=== PATIENT | male | born 1945 | race Caucasian/White ===

== ENCOUNTER → 2017-01-03 | Outpatient (CLI) | payer BC ==
[~2017-01-03] MED LIST: ACET-1256 PO; GABEPENTIN; NAPR1TAB9 PO; REVIEWED; SIMV10TA2 PO; TRAM-10 PO; VALA500T60 PO; [UNRECOGNIZED DRUG - OTHER]; [UNRECOGNIZED DRUG - REMARK]
[2017-01-03 09:01] LABS: BASO % 0.6 %; BASO ABS # 0.03 K/uL (0-0.2); COMPLETE YES; EOS % 5.8 %; HEMATOCRIT 41.5 % (42-52); IG% 0.4 %; LYMPH % 39.4 %; LYMPH ABS # 2.11 K/uL (1.2-3.4); MEAN CORPUSCULAR HEMOGLOBIN 31.2 pg (25-34); MEAN CORPUSCULAR HGB CONC 33.5 g/dl (32-36); MONO % 8.8 %; PLATELET COUNT 246 K/uL (130-400); RED BLOOD COUNT 4.46 M/uL (4.7-6.1); WHITE BLOOD COUNT 5.35 K/uL (4.8-10.8)
[2017-01-03 09:39] LABS: ALT/SGPT 33 U/L (12-78); AST/SGOT 20 U/L (15-37); BLOOD UREA NITROGEN 18 mg/dl (7-18); CALCIUM 9.9 mg/dl (8.5-10.1); CARBON DIOXIDE 28 mmol/L (21-32); CHLORIDE 109 mmol/L (98-107); CHOLESTEROL 165 mg/dl (0-200); FERRITIN 114.2 ng/ml (8.0-388.0); GLUCOSE 95 mg/dl (70-99); HDL CHOLESTEROL 55 mg/dl; LDL CHOLESTEROL CALCULATED 91 mg/dl; POTASSIUM 4.2 mmol/L (3.5-5.1); PROSTATE SPECIFIC ANTIGEN < 0.010 ng/ml (0.000-4.000); SODIUM 140 mmol/L (136-145); TRIGLYCERIDES 94 mg/dl (0-150); VERY LOW DENSITY LIPOPROT CALC 19 mg/dl
[2017-01-03 09:44] LABS: ALKALINE PHOSPHATASE 74 U/L (45-117)
--- NOTE | 2017-01-07 09:28 | CODING QUERY MEDICAL NECESSITY ---
SUPPORTING DIAGNOSIS NEEDED Dr. Wilsno, A supporting diagnosis is required for the test/procedure performed on this patient in order for us to be reimbursed by the patient's insurance. Please provide a supporting diagnosis for the following test/procedure listed below next to the test name along with your signature. *If there is no additional diagnosis for this patient that would support the following test/procedure please document that below next to the test/procedure. Test(s)/Procedure(s) that require a supporting diagnosis: * ([id number]) B12 VITAMIN LEVEL DIAGNOSIS: * [id number] PSA DIAGNOSIS: DATE OF SERVICE: 01/03/17 Provider Signature: Date: Thank you Anjum Jain Health Information Management Once completed, please kindly fax back to [phone] For questions please call [phone]
== END | disposition home or self-care (01) ==
LOC: C.LAB 08:08
PROVIDERS: ATTEND Internal Medicine Geriatric Medicine
DX: Z11.59 Encounter for screening for other viral diseases (principal); R73.9 Hyperglycemia, unspecified; I10 Essential (primary) hypertension; E78.5 Hyperlipidemia, unspecified; E03.9 Hypothyroidism, unspecified; E83.52 Hypercalcemia

== ENCOUNTER → 2017-07-04 | Outpatient (CLI) | payer BC ==
[2017-07-04 09:36] LABS: BASO % 0.4 %; BASO ABS # 0.02 K/uL (0-0.2); EOS % 5.4 %; EOS ABS # 0.28 K/uL (0-0.5); HEMATOCRIT 43.4 % (42-52); HEMOGLOBIN 14.7 g/dL (14.0-18.0); IG# 0.01 K/uL (0.00-0.02); LYMPH % 42.9 %; LYMPH ABS # 2.24 K/uL (1.2-3.4); MEAN CELL VOLUME 93.5 fL (80-100); MEAN CORPUSCULAR HEMOGLOBIN 31.7 pg (25-34); MEAN CORPUSCULAR HGB CONC 33.9 g/dl (32-36); MEAN PLATELET VOLUME 10.1 fL (7.4-10.4); MONO % 11.3 %; MONO ABS # 0.59 K/uL (0.11-0.59); NEUT % 39.8 %; NEUT ABS # 2.08 K/uL (1.4-6.5); PLATELET COUNT 219 K/uL (130-400); RED CELL DISTRIBUTION WIDTH CV 14.6 % (11.5-14.5); RED CELL DISTRIBUTION WIDTH SD 49.4 fL (36.4-46.3); WHITE BLOOD COUNT 5.22 K/uL (4.8-10.8)
== END | disposition home or self-care (01) ==
LOC: C.LAB 08:42
PROVIDERS: ATTEND Internal Medicine Geriatric Medicine
DX: I10 Essential (primary) hypertension (principal); D64.9 Anemia, unspecified; E03.9 Hypothyroidism, unspecified

== ENCOUNTER → 2017-09-02 | Outpatient (CLI) | payer BC | END | disposition home or self-care (01) | LOC: C.LABSPEC 11:27 | PROVIDERS: ATTEND Nurse Practitioner Adult Health | DX: L72.9 Follicular cyst of the skin and subcutaneous tissue, unspecified (principal) ==

== ENCOUNTER 2022-03-12 06:07 | Inpatient (IN) ==
--- NOTE | 2022-02-19 15:40 | PAT Medication Instructions ---
Medication Instructions Date of Service February 19, 2022 Home Medications acetaminophen 500 mg tablet (Tylenol Extra Strength) 3,000 mg PO DAILY PRN Pain acyclovir 5 % topical ointment 1 appln topical ONCE PRN Rash ascorbic acid (vitamin C) 1,000 mg tablet 2.5 gm PO TID biotin 10,000 mcg capsule 10,000 mcg PO PM glucosamine 750 eh-wnwfnfcdw-qny no.7 644 mg-vit V-juadrg-nvdlc tablet (Glucosamine-Chondr Cmplx (boswellia)) 1 tab PO TID multivitamin (Daily Multi-Vitamin tablet) 1 tab PO QAM omega-3 acid ethyl esters 1 gram capsule 1 cap PO TID cetirizine 10 mg tablet 10 mg PO QAM cholecalciferol (vitamin D3) 25 mcg (1,000 unit) tablet (Vitamin D3) 25 mcg PO PM cyclobenzaprine 5 mg tablet 5 mg PO QDD muscle spasm gabapentin 300 mg capsule 300 mg PO HS lisinopril 2.5 mg tablet 2.5 mg PO HS simvastatin 10 mg tablet 10 mg PO HS valacyclovir 500 mg tablet 500 mg PO HS STOP taking 2 weeks before surgery (or as soon as possible if surgery is within 2 weeks) glucosamine 750 vr-bbchqhhpy-sau no.7 644 mg-vit E-wxgain-icfio tablet (Glucosamine-Chondr Cmplx (boswellia)) 1 tab PO TID omega-3 acid ethyl esters 1 gram capsule 1 cap PO TID STOP taking 24 hours before surgery acyclovir 5 % topical ointment 1 appln topical ONCE PRN Rash DO NOT take the morning of surgery ascorbic acid (vitamin C) 1,000 mg tablet 2.5 gm PO TID multivitamin (Daily Multi-Vitamin tablet) 1 tab PO QAM cetirizine 10 mg tablet 10 mg PO QAM Take morning of surgery With a small sip of water, OTHERWISE NOTHING TO EAT OR DRINK AFTER MIDNIGHT: acetaminophen 500 mg tablet (Tylenol Extra Strength) 3,000 mg PO DAILY PRN Pain (if needed) Take evening before surgery acetaminophen 500 mg tablet (Tylenol Extra Strength) 3,000 mg PO DAILY PRN Pain (if needed) ascorbic acid (vitamin C) 1,000 mg tablet 2.5 gm PO TID biotin 10,000 mcg capsule 10,000 mcg PO PM cholecalciferol (vitamin D3) 25 mcg (1,000 unit) tablet (Vitamin D3) 25 mcg PO PM cyclobenzaprine 5 mg tablet 5 mg PO QDD muscle spasm gabapentin 300 mg capsule 300 mg PO HS lisinopril 2.5 mg tablet 2.5 mg PO HS simvastatin 10 mg tablet 10 mg PO HS valacyclovir 500 mg tablet 500 mg PO HS Other Notes If you have any questions please call us at [phone] or [phone] or [phone] or [phone]
--- NOTE | 2022-02-26 11:40 | Anesthesiology Consultation ---
Date of Service February 26, 2022 Assessment & Plan (1) Encounter for pre-operative examination: Chart Review Chart Review: Acceptable Risk for Surgery and Patient seen in Pre Admission Testing Teaching & Discussion Pre-Anesthesia Teaching/Discussion Notes: Instructed NPO after midnight before surgery, except medications with 15 cc of water. Medication instructions provided according to the PAT guidelines. History Surgery Operation Date: 03/12/22 07:45 Proposed Procedures p C6-C7 Anterior Cervical Discectomy and Fusion, C5 Corpectomy, Spinal Cord Monitoring - Casey Foster DO Pt states weighs 215 lb at home, has equipment clipped into belt so elected to be weighed with work equipment/heavy boots on today at 106.7 kg. Height/Weight Height: 5 ft 7 in Weight: 99.79 kg Allergies Allergy/AdvReac Type Severity Reaction Status Date / Time acetaminophen [From Percocet] Allergy Intermediate Rash Verified 02/24/22 10:27 codeine Allergy Intermediate Rash Verified 02/24/22 10:27 oxycodone [From Percocet] Allergy Intermediate Rash Verified 02/24/22 10:27 Medications Home Medications Medication Instructions Recorded Confirmed Last Taken acetaminophen 500 mg tablet 3,000 mg PO DAILY PRN Pain 03/03/19 02/19/22 Unknown (Tylenol Extra Strength) acyclovir 5 % topical ointment 1 appln topical ONCE PRN Rash 03/03/19 02/19/22 Unknown ascorbic acid (vitamin C) 1,000 mg 2.5 gm PO TID 03/03/19 02/19/22 Unknown tablet biotin 10,000 mcg capsule 10,000 mcg PO PM 03/03/19 02/19/22 Unknown glucosamine 750 sy-cdcvrgqdi-mog 1 tab PO TID 03/03/19 02/19/22 Unknown no.7 644 mg-vit E-ubzjlh-ljreg tablet (Glucosamine-Chondr Cmplx (boswellia)) multivitamin (Daily Multi-Vitamin 1 tab PO QAM 03/03/19 02/19/22 Unknown tablet) omega-3 acid ethyl esters 1 gram 1 cap PO TID 03/03/19 02/19/22 Unknown capsule cetirizine 10 mg tablet 10 mg PO QAM 03/10/19 02/19/22 Unknown cholecalciferol (vitamin D3) 25 25 mcg PO PM 02/19/22 02/19/22 Unknown mcg (1,000 unit) tablet (Vitamin D3) cyclobenzaprine 5 mg tablet 5 mg PO QDD muscle spasm 02/19/22 02/19/22 Unknown gabapentin 300 mg capsule 300 mg PO HS 02/19/22 02/19/22 Unknown lisinopril 2.5 mg tablet 2.5 mg PO HS 02/19/22 02/19/22 Unknown simvastatin 10 mg tablet 10 mg PO HS 02/19/22 02/19/22 Unknown valacyclovir 500 mg tablet 500 mg PO HS 02/19/22 02/19/22 Unknown Past Medical History Medical History (Updated 02/27/22 @ 08:23 by Anamika Burton PA-C) Aortic regurgitation Mild per 2018 stress echo Aortic root dilatation Mildly dilated aortic root and ascending aorta dilation per 2018 stress echo Dyslipidemia Genital herpes simplex H/O prostate cancer s/p prostatectomy Hearing loss HTN (hypertension) controlled, stable per pt Lumbar spinal stenosis Lung nodules Under surveillance Patient denies h/o stroke, seizures, heart attack, heart failure, DM, blood clots or blood transfusions. Exercise / Class Metabolic Activity II 4-5 Yardwork/Stairs/Walk up hill (denies CP or SOB with 1 FOS) Past Family History Family History Father Colorectal cancer Prostate cancer Mother Pancreatitis Denies family history of Ovarian cancer Diabetes Myocardial infarction Breast cancer Lung cancer Stroke Past Surgical History Surgical History History of appendectomy History of colonoscopy History of prostate surgery Prostatectomy (Dr. Harris) History of tooth extraction Hx of umbilical hernia repair Past Anesthesia History No Hx of Anesthesia Complications and No Family Hx of Anesthesia Complications History of PONV No Hx of PONV and No Hx of Motion Sickness Social History Smoking Status: Former smoker Do You Dip or Chew Tobacco: No Smoking End Date: 1988 Hx Alcohol Use: No Hx Substance Use: No substance use type: does not use Review of Systems Snoring, denies witnessed apneas. Chronic nonproductive cough, denies change or worsening. Patient denies chest pain, shortness of breath, dyspnea on exertion, reflux, fever, chills, wheezing, or palpitations. Physical Exam Vital Signs Vitals BP 112/75 P 84 TEMP 98.7 SP02 94% on RA RESP 17 Physical Limited cervical extension range of motion without pain TMD 3.5 finger breadths Mallampati Score 3 Dentition: edentulous, full upper and lower dentures Lungs: normal respiratory effort. Clear throughout to auscultation, no adventitious breath sounds Cardiac: regular rate and rhythm, no murmurs noted Carotid arteries: negative bruit bilat Lab Results Anesthesia Preop Results Results Anesthesia Widget: WBC 5.66 K/ul (4.8-10.8) 02/26/22 Hgb 14.2 g/dl (14.0-18.0) 02/26/22 Hct 41.2 % (40.1-51.0) 02/26/22 Plt 271 K/uL (130-400) 02/26/22 Na 137 mmol/L (136-145) 02/26/22 K 4.0 mmol/L (3.5-5.1) 02/26/22 Cl 105 mmol/L (98-107) 02/26/22 CO2 28 mmol/L (21-32) 02/26/22 BUN 15 mg/dl (6-23) 02/26/22 Creat 1.03 mg/dl (0.6-1.4) 02/26/22 Glucose Level 98 mg/dl (70-99(Fasting)) 02/26/22 PT 10.1 Seconds (9.0-12.0) 02/26/22 PTT 27.9 Seconds (21.0-31.0) 02/26/22 INR 0.9 (0.9-1.1) 02/26/22 Urine Color Yellow 02/26/22 Urine Appearance Clear (Clear) 02/26/22 Urine pH 7.0 (4.5-7.5) 02/26/22 Urine Specific Dickinson 1.007 (1.000-1.030) 02/26/22 Urine Protein Negative (Negative) 02/26/22 Urine Glucose (UA) Negative (Negative) 02/26/22 Urine Ketones Negative (Negative) 02/26/22 Urine Blood Negative (Negative) 02/26/22 Urine Nitrite Negative (Negative) 02/26/22 Urine Bilirubin Negative (Negative) 02/26/22 Urine Urobilinogen Negative (Negative) 02/26/22 Urine Leukocyte Esterase Negative (Negative) 02/26/22 Blood Type O Positive 02/26/22 Antibody Screen NEGATIVE 02/26/22 Testing Electrocardiogram Date: 02/26/22 NSR with sinus arrhythmia, rate 70 bpm Left axis deviation RBBB Stress Test Date: 03/01/18 Exercise METS 5 MPHR 90% EF 60-65% No regional wall motion abnormalities No LVH Mild aortic regurgitation Mildly dilated aortic root and ascending aorta Other Testing Chest CT 12/03/21 1. No acute abnormality, in particular no parenchymal or endobronchial lesion to explain hemoptysis. 2. Multiple tiny pulmonary nodules are seen measuring no more than 3 mm. According to Fleischner criteria, no follow-up is required in low risk patients, in high-risk patients, a 12 month follow-up CT can be optionally performed. COVID-19 Risk Screen Screening Information COVID-19 Screen Date: 02/26/22 Exposure 21 Days Family/Household +COVID Last 21 Days: No Exposure 10 Days Any COVID Exposure Last 10 Days: No Symptoms Last 10 Days Experienced COVID Sx Last 10 Days: No + COVID 0-90 Days COVID + in Last 0-90 Days: No
[~2022-03-12 06:07] MED LIST changes: -ACET-1256 PO; +CeleBREX 200 MG CAP PO SCH; +GABAPENTIN 300 MG CAP PO SCH; -GABEPENTIN; +LR 15ML/HR IV SCH; -NAPR1TAB9 PO; -REVIEWED; -SIMV10TA2 PO; -TRAM-10 PO; -VALA500T60 PO; -[UNRECOGNIZED DRUG - OTHER]; -[UNRECOGNIZED DRUG - REMARK]; +ceFAZolin 2000MG 2,000 MG/15 ML SYR IV SCH
[2022-03-12] MEDS ORDERED: PROPOFOL IV EMULSION 10 MG/ML 100 ML VIAL IV ONE (06:59)
[2022-03-12] MEDS ORDERED: ePHEDrine sulfate 50 MG/ML SYR ONE (07:19)
[2022-03-12] MEDS ORDERED: ROCURONIUM BROMIDE 10 MG/ML 5 ML VIAL IV ONE (07:19)
[2022-03-12] MEDS ORDERED: PHENYLEPHRINE 100MCG/ML 5ML SYR ONE (07:19)
[2022-03-12] MEDS ORDERED: LIDOCAINE 2% MPF LOCAL 5 ML VIAL INFIL ONE (07:19)
[2022-03-12] MEDS ORDERED: fentaNYL citrate 100 MCG/2 ML VIAL ONE (07:19)
[2022-03-12] MEDS ORDERED: MIDAZOLAM HCL 1 MG/ML 2ML VIAL ONE (07:19)
[2022-03-12] MEDS ORDERED: LARYING-O-JET KIT (LTA) ONE (07:19)
[2022-03-12] MEDS ORDERED: PROPOFOL IV EMULSION 10 MG/ML 20 ML VIAL IV ONE (07:19)
[2022-03-12] MEDS ORDERED: DEXAMETHASONE SOD INJ 4 MG/ML VIAL ONE (07:19)
[2022-03-12] MEDS ORDERED: ONDANSETRON INJ 2 MG/ML 2 ML VIAL ONE (07:19)
[2022-03-12] MEDS ORDERED: GLYCOPYRROLATE 0.2 MG/ML VIAL ONE (07:19)
[2022-03-12] MEDS ORDERED: NEOSTIGMINE METHYLSULFATE 1 MG/ML 10ML VIAL ONE (07:19)
[2022-03-12] MEDS ORDERED: SUCCINYLCHOLINE CHLORIDE 20 MG/ML 10 ML VIAL IV ONE (07:19)
--- NOTE | 2022-03-12 07:33 | History & Physical Bridge Note ---
Date of Service March 12, 2022 History & Physical Bridge Note I have examined the patient, reviewed the History & Physical and in the interval since the performance of the History & Physical I have noted the following changes of clinical significance: no changes noted
--- NOTE | 2022-03-12 07:34 | History & Physical Report ---
Date of Service March 12, 2022 Assessment & Plan (1) Cervical stenosis of spinal canal: Plan: Anterior cervical discectomy and fusion C6-C7 with C5 corpectomy History of Present Illness Chief Complaint: Neck and arm pain Primary Care Provider: Sohan Woo DO This is a 76-year-old male who presents with chronic persistent neck and arm symptoms with failed course of nonoperative care is here for surgical invention. Allergies Allergy/AdvReac Type Severity Reaction Status Date / Time codeine Allergy Intermediate Rash Verified 03/12/22 06:44 oxycodone [From Percocet] Allergy Intermediate Rash Verified 03/12/22 06:44 Home Medications Medication Instructions Recorded Confirmed Type acetaminophen 500 mg tablet 3,000 mg PO DAILY PRN Pain 03/03/19 03/12/22 History (Tylenol Extra Strength) acyclovir 5 % topical ointment 1 appln topical ONCE PRN Rash 03/03/19 03/12/22 History ascorbic acid (vitamin C) 1,000 mg 2.5 gm PO TID 03/03/19 03/12/22 History tablet biotin 10,000 mcg capsule 10,000 mcg PO PM 03/03/19 03/12/22 History glucosamine 750 ga-ukiaweotx-mkw 1 tab PO TID 03/03/19 03/12/22 History no.7 644 mg-vit O-zppnem-pfdbv tablet (Glucosamine-Chondr Cmplx (boswellia)) multivitamin (Daily Multi-Vitamin 1 tab PO QAM 03/03/19 03/12/22 History tablet) omega-3 acid ethyl esters 1 gram 1 cap PO TID 03/03/19 03/12/22 History capsule cetirizine 10 mg tablet (Zyrtec) 10 mg PO QAM 03/10/19 03/12/22 History cholecalciferol (vitamin D3) 25 25 mcg PO PM 02/19/22 03/12/22 History mcg (1,000 unit) tablet (Vitamin D3) cyclobenzaprine 5 mg tablet 5 mg PO QDD muscle spasm 02/19/22 03/12/22 History gabapentin 300 mg capsule 300 mg PO HS 02/19/22 03/12/22 History lisinopril 2.5 mg tablet (Zestril) 2.5 mg PO HS 02/19/22 03/12/22 History simvastatin 10 mg tablet (Zocor) 10 mg PO HS 02/19/22 03/12/22 History valacyclovir 500 mg tablet 500 mg PO HS 02/19/22 03/12/22 History (Valtrex) Past Med/Surg History Medical History Aortic regurgitation Aortic root dilatation Dyslipidemia Genital herpes simplex H/O prostate cancer Hearing loss HTN (hypertension) Lumbar spinal stenosis Lung nodules Surgical History History of appendectomy History of colonoscopy History of prostate surgery History of tooth extraction Hx of umbilical hernia repair Family History Father Colorectal cancer Prostate cancer Mother Pancreatitis Denies family history of Ovarian cancer Diabetes Myocardial infarction Breast cancer Lung cancer Stroke Social History Smoking Status: Former smoker Smoking End Date: 1988; Second Hand Exposure: No; Do You Dip or Chew Tobacco: No; Tobacco Cessation Education Requested by Patient: No Hx Alcohol Use: No Hx Substance Use: No Preferred Language: Hebrew Communication Ability: Effective Visual Impairment: Limited Hearing Ability: Hard of Hearing Hearing Therapy Director Required: No Beliefs That Will Affect Care: None marital status: Current Living Situation: Spouse current occupational status: employed How many Children do You have: 3 Other Information That Helps Us Care for You: No Feels Safe at Home: Yes Safety Concerns: Feels Safe At This Time Childhood Exposure to Second-Hand Smoke: No caffeine: Yes Dental Care, Regularly: No Physical Activity Frequency: Does not Exercise Seatbelt Use: always Sunscreen Use: No Assistive Devices: Denture - Upper, Denture - Lower and Glasses Physical Exam Physical Exam: Patient is alert and oriented Heart regular rhythm Lungs clear Results & Data Results & Data ([facility]) Vital Signs (Past 12 Hours) Vital Signs Temp Pulse Resp BP Pulse Ox O2 Del Method 03/12/22 06:54 36.4 C L 79 20 137/81 94 Room Air
[2022-03-12] MEDS ORDERED: ceFAZolin 330 MG/ML 1 GM VIAL ONE (08:13)
[2022-03-12] MEDS ORDERED: PROMETHAZINE HCL 12.5 MG in SODIUM CHLORIDE 0.9% 50 ML IV PRN ×2 (08:43→11:24)
[2022-03-12] MEDS ORDERED: ePHEDrine sulfate 50 MG/ML AMP IV PRN (08:43)
[2022-03-12] MEDS ORDERED: ATROPINE SULFATE 0.1 MG/ML 10ML SYR IV PRN (08:43)
[2022-03-12] MEDS ORDERED: DEXAMETHASONE SOD INJ 4 MG/ML VIAL IV PRN (08:43)
[2022-03-12] MEDS ORDERED: METOCLOPRAMIDE HCL INJ 5 MG/ML 2 ML VIAL IV PRN ×2 (08:43→11:24)
[2022-03-12] MEDS ORDERED: FLOSEAL HEMOSTATIC MATRIX 10ML TOP ONE (09:24)
--- NOTE | 2022-03-12 09:41 | Operative Report ---
Post Operative Report Pre & Post Diagnosis Operation Date: 03/12/22 07:45 Pre-Op Diagnosis: Cervical spinal stenosis with radiculopathy Post-Op Diagnosis: Same I identified the patient and participated in the time-out.: Yes Procedure Operation Date: 03/12/22 07:45 Actual Procedures #1 anterior cervical corpectomy with bilateral foraminotomies C5. #2 anterior cervical discectomy C6-C7 with bilateral foraminotomies. #3 anterior cervical arthrodesis C4-C6 and C6-C7. #4 placement of peek 23 mm cage C4-C6 and 7 mm cage at C6-C7. #5 placement locally harvested morselized autograft combined with I factor and interbody cages. #6 placement of 5 complete and screws from C4-C7. Surgeon Casey Foster, DO Mission Support Specialist Yuli May Estimated Blood Loss 10 Findings See Below The patient is 5 foot 7 weighing over 110 kg with a BMI in excess of 35. The patient body habitus did contribute to significant technical difficulty required deeper retractors longer instruments in order to perform his procedure. This at least 50% increased operative time. Specimens None Indications This is a 76-year-old male who presents with above-mentioned diagnosis after failed course of nonoperative care is here for the above-mentioned procedure. Description of Procedure Patient was met with identified informed consent obtained. Patient was then taken to the operative suite underwent ablation placed in supine position Andreas table with head Sánchez rand. All bony prominences well-padded eyes inspected to ensure no external pressure placed upon the. This point anterior cervical spine was prepped and draped in a sterile fashion. Incision was then placed along the right anterior aspect of the cervical spine overlying the C C6 vertebral body. Blunt dissection was then carried out down to and exposing anterior spine from C4-C5 7. Several 10 retractors placed. Then performed a complete discectomy of C4-C5 out to the uncovertebral edge bilaterally followed by C6-C7. Stapleton distracting pins were then placed in C4 and C6 to distract across the C5 vertebral body. A complete corpectomy was then performed including removal of all posterior annular fibers longitudinal ligament bilateral foraminotomies performed. Endplates burred to subcortical bleeding bone and a 23 mm peek cage filled with locally harvested morselized autograft and I factor tapped in position. Distracting apparatus was removed and we proceeded to C6-C7. Again complete discectomy performed out to the uncovertebral joints bilaterally. Stapleton distracting pins again utilized. Removed all posterior annular fibers longitudinal ligament bilateral foraminotomies performed. A 7 mm peek cage filled with locally harvested morselized autograft and I factor tapped the position. Distracting apparatus was removed and all anterior osteophytes produce with cortical surface. 5 compl ete screws were then applied with the assistance of fluoroscopy. Incision was then copiously irrigated explored to ensure no damage to surrounding structures or remaining bleeding. 10 round JASON drain inserted. The incision was then closed with subcutaneous Vicryl and 4 Monocryl for fascial closure. Steri-Strip sterile dressings placed. Patient waken taken back in stable condition. Please note spinal cord monitoring was utilized at the procedure and Yuli May was present out the surgery involved in patient positioning complex portions of the surgery. I attest to the content of the Intraoperative Record and any orders documented therein. Any exceptions are noted below.
[2022-03-12] MEDS: fentaNYL citrate 100 MCG/2 ML VIAL IV PRN ×3 (10:22→10:35)
[2022-03-12] MEDS: HYDROmorphone INJ 2 MG/ML SYR/VIAL IV PRN ×4 (10:45→11:55)
--- NOTE | 2022-03-12 10:45 | Fluoroscopy Report ---
FL cervical 2-3V CLINICAL HISTORY: ACDF C6-7 C5 CORPECTOMY COMPARISON STUDY: Cervical spine radiograph May 17, 2021. MRI of the cervical spine May. FLUOROSCOPY TIME: 11 seconds. FLUOROSCOPIC IMAGES: 2 FINDINGS: Fluoroscopy was provided during C5 corpectomy and C4-C7 anterior discectomy and fusion. Rocky gical drain is in place. Endotracheal tube is partially imaged. IMPRESSION: Fluoroscopy provided during C5 corpectomy and C4-C7 anterior discectomy and fusion. ACT 112: Negative or not required by law. Electronically signed by: Anthony Tom M.D. 03/12/2022 10:44 AM
[2022-03-12] MEDS ORDERED: LORazepam 0.5 MG in SYRINGE 0 ML IV PRN (11:24)
[2022-03-12] MEDS ORDERED: ACETAMINOPHEN 1,000 MG/100 ML VIAL IV PRN (11:24)
[2022-03-12] MEDS ORDERED: diphenhydrAMINE Capsule 25 MG CAP PO PRN (11:24)
[2022-03-12] MEDS ORDERED: NALOXONE HCL 0.4 MG/1 ML VIAL/CARP IV PRN (11:24)
[2022-03-12] MEDS ORDERED: MAGNESIUM HYDROXIDE SUSP 30 ML UDC PO PRN (11:24)
[2022-03-12] MEDS ORDERED: ONDANSETRON 4 MG OD TAB PO PRN (11:24)
[2022-03-12] MEDS ORDERED: RACEPINEPHRINE 2.25% NEBU SOLN 0.5 ML VIAL INH PRN (11:24)
[2022-03-12] MEDS ORDERED: HYDROmorphone INJ 1 MG/ML SYRINGE IV PRN (11:24)
[2022-03-12] MEDS ORDERED: SOD PHOSPHATE/SOD BIPHOSPHATE ENEMA 132 ML BTL PR PRN (11:24)
[2022-03-12] MEDS ORDERED: hydrOXYzine HCl 25 MG TAB PO PRN (11:24)
[2022-03-12] MEDS ORDERED: LORazepam 0.5 MG TAB PO PRN (11:24)
[2022-03-12] MEDS ORDERED: HYDROCODONE/ACETAMOPHEN 5/325MG TAB PO PRN (11:24)
[2022-03-12] MEDS ORDERED: dexAMETHasone 8 MG in SYRINGE 0 ML IV PRN (11:24)
[2022-03-12] MEDS ORDERED: HYDROmorphone INJ 0.5 MG/0.5 ML SYR IV PRN (11:24)
[2022-03-12] MEDS ORDERED: ACETAMINOPHEN 500 MG TAB PO PRN (11:24)
[2022-03-12] MEDS ORDERED: ONDANSETRON INJ 2 MG/ML 2 ML VIAL IV PRN (11:24)
[2022-03-12] MEDS ORDERED: FAMOTIDINE 20 MG TAB PO PRN (11:24)
[2022-03-12] MEDS ORDERED: bisacodyL 10 MG SUPP PR PRN (11:24)
[2022-03-12] MEDS ORDERED: ALUMINUM/MAGNESIUM SUSP 30 ML UDC PO PRN (11:24)
--- NOTE | 2022-03-12 12:07 | Anesthesiology Progress Note ---
Date of Service March 12, 2022 Anesthesia Post Procedure Vital Signs Vital Signs: Temp Pulse Pulse Resp BP Pulse Ox O2 Del Method 03/12/22 12:00 95 H 15 153/71 H 97 Nasal Cannula 03/12/22 11:45 91 H 12 125/71 98 Nasal Cannula 03/12/22 11:30 87 16 126/72 98 Nasal Cannula 03/12/22 10:30 66 17 115/72 100 Nasal Cannula 03/12/22 10:20 67 19 115/76 100 Nasal Cannula 03/12/22 10:10 76 19 127/74 100 Nasal Cannula 03/12/22 10:00 62 15 110/75 99 Oxymask 03/12/22 11:15 57 L 15 100/67 98 Nasal Cannula 03/12/22 11:10 36 C L 52 L 15 118/80 96 Nasal Cannula 03/12/22 11:00 52 L 17 122/83 97 Nasal Cannula 03/12/22 10:50 58 L 20 110/71 98 Nasal Cannula 03/12/22 10:40 49 L 20 115/72 98 Nasal Cannula 03/12/22 09:50 86 12 117/73 98 Oxymask 03/12/22 09:44 36.1 C L 92 H 19 128/80 99 Oxymask 03/12/22 06:54 36.4 C L 79 20 137/81 94 Room Air O2 Flow Rate 03/12/22 12:00 2 03/12/22 11:45 2 03/12/22 11:30 2 03/12/22 10:30 2 03/12/22 10:20 2 03/12/22 10:10 2 03/12/22 10:00 4 03/12/22 11:15 2 03/12/22 11:10 2 03/12/22 11:00 2 03/12/22 10:50 2 03/12/22 10:40 2 03/12/22 09:50 7 03/12/22 09:44 7 03/12/22 06:54 Pain Intensity Posterior Neck: Pain Intensity: 4 Transfer of Care Handoff Completed per policy Notes Mental Status: alert / awake / arousable and participated in evaluation Patient Amnestic to Procedure: Yes Nausea / Vomiting: adequately controlled Pain: adequately controlled Airway Patency, RR, SpO2: stable & adequate BP & HR: stable & adequate Hydration State: stable & adequate Anesthetic Complications: no major complications apparent
[2022-03-12] MEDS: SODIUM CHLORIDE 0.9% 1000ML 1,000 ML IV SCH ×2 (13:01→19:47)
[2022-03-12] MEDS ORDERED: COUGH DROP (SUGAR FREE) LOZ 24 LOZ/1 BOX BUCCAL ONE (13:06)
--- NOTE | 2022-03-12 13:12 | Hospitalist Consultation ---
Date of Consultation March 12, 2022 Assessment & Plan (1) S/P cervical spinal fusion: -Patient is currently afebrile, hemodynamically stable, and stable on 3L NC -No reported intra-op complications, EBL reported as 10cc -Patient is currently doing well and eating lunch -Pain control, abx, IV fluids and DVT prophylaxis per the primary team -Wean O2 as able, if unable to successfully wean would obtain a chest xray -Monitor for volume overload while on IV fluids -Continue famotidine for ulcer prophylaxis -Ordered am CBC and BMP, monitor Hgb and renal function (2) HTN (hypertension): -Last dose of Lisinopril was last night, can restart tomorrow if hemodynamically stable and kidney function is stable (3) Dyslipidemia: -Continue simvastatin (4) Genital herpes: -Continue daily Valacyclovir for suppression Plan The patient was discussed with Dr. Noel at the time of the consult Supervising Physician Co-Signing Physician Notes I personally saw and examined the patient. I verified all bettencourt points and agree with Johnnie Amin PA-C with the following exceptions and/or additions: 76 year old male POD#0 cervical spinal fusion. Doing well post operatively, left arm symptoms have improved. Neck pain under control with current pain regimen. O/E HS1+2, no murmurs, Chest CTAB, Abdo SNT A/P HTN - delayed lisinopril dose by another day given low normal blood pressures. Otherwise plan as above. Thank you for the consult. The medical team with review the patient with post operative labs tomorrow. History of Present Illness Reason for Consultation: Post-op medical management Requesting Physician: Casey Foster DO Attending Physician: Dr. Lane Noel History of Present Illness Ulysses is a 76 year old male with a PMH significant for cervical spinal stenosis, HTN, dyslipidemia, obesity, hypercalcemia, genital herpes simplex and aortic regurgitation who presented to the [facility] for Anterior cervical discectomy and fusion C6-C7 with C5 corpectomy with Dr. Foster today. Per the post-op note, the were no reported intraoperative complications, EBL was listed as 10 mL. At the time of the exam the patient was sitting comfortably in bed eating lunch. He states he is doing well post-procedure, he currently has mild cervical neck pain radiating into the left shoulder. He is currently saturating at 100% on 3L NC, he denies using O2 at home and does not use a CPAP machine. He denies current fevers, chills, chest pain, SOB, ABD pain, Nausea, vomiting, di arrhea, dysuria, hematuria, and recent falls. He used to be a heavy smoker but quit back in 1988. He is currently on daily Valacyclovir for suppression on his genital herpes and it has been working well. Allergies Allergy/AdvReac Type Severity Reaction Status Date / Time codeine Allergy Intermediate Rash Verified 03/12/22 06:44 oxycodone [From Percocet] Allergy Intermediate Rash Verified 03/12/22 06:44 Home Medications Medication Instructions Recorded Confirmed Type acetaminophen 500 mg tablet 3,000 mg PO DAILY PRN Pain 03/03/19 03/12/22 History (Tylenol Extra Strength) acyclovir 5 % topical ointment 1 appln topical ONCE PRN Rash 03/03/19 03/12/22 History ascorbic acid (vitamin C) 1,000 mg 2.5 gm PO TID 03/03/19 03/12/22 History tablet biotin 10,000 mcg capsule 10,000 mcg PO PM 03/03/19 03/12/22 History glucosamine 750 os-ieoysdrhk-mze 1 tab PO TID 03/03/19 03/12/22 History no.7 644 mg-vit B-kmpkfs-mucxd tablet (Glucosamine-Chondr Cmplx (boswellia)) multivitamin (Daily Multi-Vitamin 1 tab PO QAM 03/03/19 03/12/22 History tablet) omega-3 acid ethyl esters 1 gram 1 cap PO TID 03/03/19 03/12/22 History capsule cetirizine 10 mg tablet (Zyrtec) 10 mg PO QAM 03/10/19 03/12/22 History cholecalciferol (vitamin D3) 25 25 mcg PO PM 02/19/22 03/12/22 History mcg (1,000 unit) tablet (Vitamin D3) cyclobenzaprine 5 mg tablet 5 mg PO QDD muscle spasm 02/19/22 03/12/22 History gabapentin 300 mg capsule 300 mg PO HS 02/19/22 03/12/22 History lisinopril 2.5 mg tablet (Zestril) 2.5 mg PO HS 02/19/22 03/12/22 History simvastatin 10 mg tablet (Zocor) 10 mg PO HS 02/19/22 03/12/22 History valacyclovir 500 mg tablet 500 mg PO HS 02/19/22 03/12/22 History (Valtrex) hydrocodone 5 mg-acetaminophen 325 1 tab PO Q6H PRN pain #30 tabs 03/12/22 Rx mg tablet Patient History Medical History Aortic regurgitation Aortic root dilatation Dyslipidemia Genital herpes simplex H/O prostate cancer Hearing loss HTN (hypertension) Lumbar spinal stenosis Lung nodules Surgical History History of appendectomy History of colonoscopy History of prostate surgery History of tooth extraction Hx of umbilical hernia repair Family History Father Colorectal cancer Prostate cancer Mother Pancreatitis Denies family history of Ovarian cancer Diabetes Myocardial infarction Breast cancer Lung cancer Stroke Social History Smoking Status: Former smoker Smoking End Date: 1988; Second Hand Exposure: No; Do You Dip or Chew Tobacco: No; Tobacco Cessation Education Requested by Patient: No Hx Alcohol Use: No Hx Substance Use: No Preferred Language: Japanese Communication Ability: Effective Visual Impairment: Limited Hearing Ability: Hard of Hearing Postdoctoral Scholar Required: No Beliefs That Will Affect Care: None marital status: Current Living Situation: Spouse current occupational status: employed How many Children do You have: 3 Other Information That Helps Us Care for You: No Feels Safe at Home: Yes Safety Concerns: Feels Safe At This Time Childhood Exposure to Second-Hand Smoke: No caffeine: Yes Dental Care, Regularly: No Physical Activity Frequency: Does not Exercise Seatbelt Use: always Sunscreen Use: No Assistive Devices: None Review of Systems Review of Systems: Denies current fever, chills, headache, changes in vision, hearing, taste, and smell, chest pain, SOB, cough, abdominal pain, nausea, vomiting, diarrhea, hematemesis, melena, dysuria, hematuria, and recent falls. All systems have been reviewed and are otherwise negative. Physical Exam Physical Exam: Physical Exam: General: In no acute distress, stated age, well-nourished HEENT: Patient currently with C-collar in place, drain from the surgical site currently contains a small amount of blood, Normocephalic, atraumatic, no scleral icterus, pupils around round, symmetrical, and reactive to light, moist mucus membranes, trachea midline, no thyromegaly Chest/Pulm: Currently stable on 3L NC, No respiratory distress, symmetrical chest expansion, clear breath sounds throughout Cardiac: RRR, no murmurs noted Abdomen: Negative for ascites and bruising, normoactive bowel sounds, soft, non-tender to palpation throughout Musculoskeletal: Symmetrical and without signs of acute trauma, upper and lower extremities with full ROM, no atrophy, spasticity, or flaccidity Extremities: Radial, dorsalis pedis, and posterior tibial pulses are intact and symmetrical, no edema noted in the BL LE's Skin: Warm, dry, no rashes , lesions, or scars noted Neuro: Alert and oriented to person, place, month, year, and president, no focal defects, CN II-XII tested and intact, finger to nose test negative, no tremors noted Psych: No acute distress, calm and cooperative during the exam Results & Data Results & Data ([facility]) Vital Signs (Past 12 Hours) Vital Signs Temp Pulse Pulse Resp BP Pulse Ox Pulse Ox 03/12/22 13:00 36.9 C 92 H 16 121/72 97 03/12/22 12:30 36.6 C 97 H 16 128/75 98 03/12/22 12:37 98 03/12/22 12:35 100 H 17 99 03/12/22 12:00 95 H 15 153/71 H 97 03/12/22 11:45 91 H 12 125/71 98 03/12/22 11:30 87 16 126/72 98 03/12/22 10:30 66 17 115/72 100 03/12/22 10:20 67 19 115/76 100 03/12/22 10:10 76 19 127/74 100 03/12/22 10:00 62 15 110/75 99 03/12/22 11:15 57 L 15 100/67 98 03/12/22 11:10 36 C L 52 L 15 118/80 96 03/12/22 11:00 52 L 17 122/83 97 03/12/22 10:50 58 L 20 110/71 98 03/12/22 10:40 49 L 20 115/72 98 03/12/22 09:50 86 12 117/73 98 03/12/22 09:44 36.1 C L 92 H 19 128/80 99 03/12/22 06:54 36.4 C L 79 20 137/81 94 O2 Del Method O2 Del Method O2 Flow Rate O2 Flow Rate 03/12/22 13:00 Nasal Cannula 2 03/12/22 12:30 Nasal Cannula 2 03/12/22 12:37 Nasal Cannula 2 03/12/22 12:35 Nasal Cannula 2 03/12/22 12:00 Nasal Cannula 2 03/12/22 11:45 Nasal Cannula 2 03/12/22 11:30 Nasal Cannula 2 03/12/22 10:30 Nasal Cannula 2 03/12/22 10:20 Nasal Cannula 2 03/12/22 10:10 Nasal Cannula 2 03/12/22 10:00 Oxymask 4 03/12/22 11:15 Nasal Cannula 2 03/12/22 11:10 Nasal Cannula 2 03/12/22 11:00 Nasal Cannula 2 03/12/22 10:50 Nasal Cannula 2 03/12/22 10:40 Nasal Cannula 2 03/12/22 09:50 Oxymask 7 03/12/22 09:44 Oxymask 7 03/12/22 06:54 Room Air Diagnostic Findings Cervical Spine X-Ray 03/12/22 07:45 FL cervical 2-3V CLINICAL HISTORY: ACDF C6-7 C5 CORPECTOMY COMPARISON STUDY: Cervical spine radiograph May 17, 2021. MRI of the cervical spine June 04, 2021. FLUOROSCOPY TIME: 11 seconds. FLUOROSCOPIC IMAGES: 2 FINDINGS: Fluoroscopy was provided during C5 corpectomy and C4-C7 anterior discectomy and fusion. Surgical drain is in place. Endotracheal tube is partially imaged. IMPRESSION: Fluoroscopy provided during C5 corpectomy and C4-C7 anterior discectomy and fusion. ACT 112: Negative or not required by law. Electronically signed by: Anthony Tom M.D. 03/12/2022 10:44 AM ECG Additional Comments: No ECG available at the time of the consult PG Care Time/CCT Total # of Minutes Spent Total Time Spent with Patient: Total time spent is greater than 50% in coordination of care (as documented) at patient's floor/unit and/or counseling patient: Coding [place] [address] Inpt Consult Level 5 Patient Type Established Medical Decision Making Moderate Complexity Diagnoses S/P cervical spinal fusion Z98.1 HTN (hypertension) I10 Dyslipidemia E78.5 Genital herpes A60.00
[2022-03-12] MEDS: ceFAZolin 2000MG 2,000 MG/15 ML SYR IV SCH ×2 (15:50→23:48)
[2022-03-12] MEDS: traMADol HCL 50 MG TABLET PO PRN ×2 (16:21→22:41)
[2022-03-12] MEDS ORDERED: CYCLOBENZAPRINE HCL 5 MG TAB PO SCH (16:30)
[2022-03-12] MEDS ORDERED: SIMVASTATIN 10 MG TAB PO SCH (21:00)
[2022-03-12] MEDS ORDERED: valACYclovir HCL 500 MG TABLET PO SCH (21:00)
[2022-03-12] MEDS ORDERED: GABAPENTIN 300 MG CAP PO SCH (21:00)
[2022-03-12] MEDS ORDERED: CHOLECALCIFEROL 1,000 UNITS 25 MCG TAB PO SCH (21:00)
[2022-03-12] MEDS ORDERED: lisinopril 2.5 MG TAB PO SCH (21:00)
[2022-03-12] MEDS ORDERED: DOCUSATE SODIUM/SENNA 50/8.6MG TAB PO SCH (21:00)
[2022-03-13] MEDS: SODIUM CHLORIDE 0.9% 1000ML 1,000 ML IV SCH (01:50)
[2022-03-13] MEDS: POLYETHYLENE (MIRALAX) 17 GM PACK PO SCH ×2 (06:20→12:09)
[2022-03-13 06:37] LABS: Mean Corpuscular Hemoglobin 31.4 pg (25.0-34.0); Mean Corpuscular Hgb Conc 33.3 g/dL (32.0-36.0); Mean Corpuscular Volume 94.2 fL (80.0-100.0); Mean Platelet Volume 9.7 fL (9.4-12.4); Platelet Count 219 K/uL (130-400); RDW Coefficient of Variation 14.4 % (11.5-14.5); RDW Standard Deviation 49.7 fL (36.4-46.3); Red Blood Count 3.82 M/uL (4.63-6.08); White Blood Count 9.67 K/ul (4.8-10.8)
[2022-03-13 07:06] LABS: BUN Creatinine Ratio 13.3 (10-20); Calcium 9.2 mg/dl (8.5-10.1); Creatinine Clr Calc Pharmacy 82.3 ml/min; Est GFR (African American) 97.2 ml/min; Est GFR (Non-African American) 83.8 ml/min
--- NOTE | 2022-03-13 07:50 | Hospitalist Progress Note ---
Date of Service March 13, 2022 Assessment & Plan (1) S/P cervical spinal fusion: Plan: POD#1 s/p #1 anterior cervical corpectomy with bilateral foraminotomies C5. #2 anterior cervical discectomy C6-C7 with bilateral foraminotomies. #3 anterior cervical arthrodesis C4-C6 and C6-C7. #4 placement of peek 23 mm cage C4-C6 and 7 mm cage at C6-C7. #5 placement locally harvested morselized autograft combined with I factor and interbody cages. #6 placement of 5 complete and screws from C4-C7. on 03/[address] Foster. EBL 10cc Pain control/bowel regimen/PT/OT per primary service Dexamethasone by primary service 6mg IV daily c-collar H/h 14.2/41.2 --> post-operatively. Acute blood loss anemia but also dilutional as on continuous IVF post-operatively Likely plans for d/c after lunch, f/u Dr Foster after d/c (2) HTN (hypertension): Plan: BP stable 110/75 Kidney function stable, lisinopril ordered to resume tonight 2.5mg (3) Dyslipidemia: Plan: Continue simvastatin (4) Genital herpes: Plan: -Continue daily Valacyclovir for suppression Plan plans for d/c after lunch per primary service please call with any questions/concerns Admission and Anticipated Discharge Date Admission Date: March 12, 2022 Supervising Physician Co-Signing Physician Notes PA Supervision Note: I did not personally see or examine the patient today, but I verified all bettencourt points of MAYANK Sheets's assessment and plan with the following exceptions/additions: None Subjective Patient evaluated this morning, doing well. No sob/wheezing or difficulty breathing reported. Some soreness/hoarseness of voice, typically uses cough drops on the regular and has on bedside tray. Ate bread and eggs this morning , keeping mouth moist. No fever/chills, chest pain, shortness of breath, abdominal pain nausea or vomiting. Strength great b/l UE, decrease in discomfort to his RUE. Plans for d/c later today after lunch. Wanting to know about taking his Boswellia all natural antiinflammatory. Discussed would clear with Dr Foster prior to resuming this, will also message. Questions/concerns addressed at this time. Review of Systems Review of Systems: All systems reviewed & are unremarkable except as noted in HPI & below Physical Exam Physical Exam: General: WN/WD male sitting up in bed, NAD HEENT: head normocephalic, c-collar removed sitting up in bed, dressing c/d/i, minimal edema, NO STRIDOR Resp: CTAB, no w/c/r, no stridor, 97% on RA CV: RRR, no m/r/g, pulses palpable GI: +BS, nontender MSK/Neuro: moves all extremities, strength equal bilaterally, featherer strength equal, no focal deficit Psych: AOxx3, pleasant and cooperative Results & Data Results & Data ([facility]) Vital Signs (Past 12 Hours) Vital Signs Temp Pulse Pulse Resp BP Pulse Ox O2 Del Method 03/13/22 05:45 36.5 C 61 18 110/75 96 Room Air 03/13/22 03:45 36.6 C 70 16 107/63 95 Room Air 03/13/22 03:43 61 18 94 Room Air 03/13/22 01:45 36.9 C 69 16 110/64 92 Room Air 03/12/22 23:45 36.5 C 64 16 105/64 94 Room Air 03/12/22 21:45 36.9 C 74 16 106/66 92 Room Air 03/12/22 19:45 36.5 C 79 18 102/61 94 Room Air 03/12/22 22:42 62 16 95 Room Air Laboratory Results 03/13/22 03/13/22 Range/Units 05:55 05:55 WBC 9.67 (4.8-10.8) K/ul RBC 3.82 L (4.63-6.08) M/uL Hgb 12.0 L (14.0-18.0) g/dl Hct 36.0 L (40.1-51.0) % MCV 94.2 (80.0-100.0) fL MCH 31.4 (25.0-34.0) pg MCHC 33.3 (32.0-36.0) g/dL RDW Std Deviation 49.7 H (36.4-46.3) fL RDW Coeff of Alondra 14.4 (11.5-14.5) % Plt Count 219 (130-400) K/uL MPV 9.7 (9.4-12.4) fL Sodium 138 (136-145) mmol/L Potassium 4.0 (3.5-5.1) mmol/L Chloride 107 (98-107) mmol/L Carbon Dioxide 27 (21-32) mmol/L Anion Gap 4 (3-11) BUN 12 (6-23) mg/dl Creatinine 0.90 (0.6-1.4) mg/dl Est Cr Clr Drug Dosing 82.3 ml/min Est GFR ( Amer) 97.2 ml/min Est GFR (Non-Af Amer) 83.8 ml/min BUN/Creatinine Ratio 13.3 (10-20) Glucose 110 H (70-99(Fasting)) mg/dl Calcium 9.2 (8.5-10.1) mg/dl PG Care Time/CCT Total # of Minutes Spent Total Time Spent with Patient: Total time spent is greater than 50% in coordination of care (as documented) at patient's floor/unit and/or counseling patient: Coding Level of Care Code 51099 Subseq Hosp Care Lvl 1 Diagnoses S/P cervical spinal fusion Z98.1 HTN (hypertension) I10 Dyslipidemia E78.5 Genital herpes A60.00
--- NOTE | 2022-03-13 08:27 | Discharge Summary ---
Date of Service March 13, 2022 Admission HPI Per Admitting Provider This is a 76-year-old male who presents with chronic persistent neck and arm symptoms with failed course of nonoperative care is here for surgical invention. Principal Diagnosis Cervical spinal stenosis with radiculopathy Discharge Data Allergies Allergy/AdvReac Type Severity Reaction Status Date / Time codeine Allergy Intermediate Rash Verified 03/12/22 06:44 oxycodone [From Percocet] Allergy Intermediate Rash Verified 03/12/22 06:44 Consultations 03/12/22 11:24 Consult Hospitalist Routine Procedures Performed Operation Date: 03/12/22 07:45 Actual Procedures p C6-C7 Anterior Cervical Discectomy and Fusion, C5 Corpectomy, Spinal Cord Monitoring(Not Applicable) - Casey Foster DO Ordered Studies 03/12/22 07:45 FL cervical 2-3V Routine Hospital Course (1) Cervical stenosis of spinal canal: Patient 1 anterior decompression and fusion of the cervical spine tolerated this well was taken to orthopedic for postoperative. Postop day 1 he was swallowing well. Excellent strength testing. Pain improved. Socially discharged home. Discharge orders instructions from the chart for further review. Total Time Total Time Spent Total Time Spent (In Minutes): 20 minutes Discharge Plan Discharge Items Patient Disposition: Home - Self-Care Reason For Visit: POST OP Discharge Diagnosis: Cervical spinal stenosis with myeloradiculopathy Activity: As commented below Non-emergency contact: Primary Care Provider Call non-emergency contact if: you have any medication questions Follow-up/Referrals: Sohan Woo DO [Primary Care Provider] - Diet: Regular Addtl Attending Provider Instructions: ACTIVITY RECOMMENDATIONS: SELF CARE INSTRUCTIONS AFTER CERVICAL FUSIONS 1. No smoking. Smoking drastically decreases the chance of a solid fusion. 2. No bending, lifting more than 5 pounds, or twisting (roll like a log when turning in bed). 3. You may shower 3 days after surgery. Thoroughly dry wound. Do not soak in the tub. 4. Cervical collar: Must be worn at all times including sleeping. You may remove the brace only to bath, eat and if you are sitting in a recliner. 5. Please walk as much as you can for exercise. Gradually increase the distance that you walk as your endurance increases. SPECIAL CARE INSTRUCTIONS: VERY IMPORTANT TO READ AND REVIEW A. Do not take any anti-inflammatory medications (i.e. Indocin, Advil, Aspirin, Naprosyn, Aleve, Motrin, etc.) as these may inhibit the chance of a solid fusion. Tylenol is okay to take. B. Your surgical incision has been closed with a cosmetic suture under the skin that will dissolve in about 6 weeks. In 14 days, you can use a pair of clean scissors and cut the suture that is left outside of the skin at the ends of your incision. C. Complications are uncommon, but please contact us if you have any signs or symptoms of: 1. wound infection (fever higher than 102.5 degrees F, redness, separation of wound, drainage, or increasing pain from the incision) 2. blood clots in legs (pain, swelling, redness and warmth in legs) 3. urinary tract infection (fever higher than 102.5 degrees, burning upon urination or increased frequency of urination) 4. nerve problems (inability to walk on your toes or heels, numbness, loss of bowel or bladder control) 5. any other symptoms that concern you. D. Please call the office at if you have any concerns or questions about your operation or recovery. MANAGING PAIN AFTER SPINAL SURGERY 1. Narcotic medication is intended for short-term use and will be provided for surgical pain. Surgical pain usually lasts for a period of 4-6 weeks. Narcotic medication includes Percocet, Vicodin, Darvocet, Tylenol #3 or Lortab. 2. Longer-term pain is more appropriately treated with non-narcotic medication such as Tylenol ES. 3. Muscle spasm is not appropriately treated with narcotics. Muscle relaxers such as Soma, Flexeril or Skelaxin can be used along with Tylenol ES. 4. Remember that we all live with some "aches and pains". This is not unusual or uncommon after an injury or as we get older. 5. We will provide appropriate medication within the normal guidelines of their prescribed use. We will also be very cautious and aware of potential abuse and extended duration of patients' medication needs. 6. Please allow 2-3 days to process refills. Prescriptions will not be mailed but must be picked up at the office. FOLLOW UP VISIT: Keep your scheduled follow-up appointment. Any questions, please call the office at . Pending Studies at Discharge: No Stand-Alone Forms: My [facility] [employer], Smoking Cessation Medications and DC Order Prescriptions: New hydrocodone-acetaminophen 5-325 mg tablet 1 tab PO Q6H PRN (Reason: pain) Qty: 30 0RF Rx Instructions: 1 tab PO PRN; Continued acyclovir 5 % ointment 1 appln topical ONCE PRN (Reason: Rash) biotin 10,000 mcg capsule 10,000 mcg PO PM Glucosamine-Chondr (boswellia) 093-543-44-1-3 mg tablet 1 tab PO TID multivitamin [Daily Multi-Vitamin] tablet 1 tab PO QAM omega-3 acid ethyl esters 1 gram capsule 1 cap PO TID acetaminophen [Tylenol Extra Strength] 500 mg tablet 3,000 mg PO DAILY PRN (Reason: Pain) ascorbic acid (vitamin C) 1,000 mg tablet 2.5 gm PO TID cetirizine [Zyrtec] 10 mg tablet 10 mg PO QAM simvastatin [Zocor] 10 mg tablet 10 mg PO HS valacyclovir [Valtrex] 500 mg tablet 500 mg PO HS Rx Instructions: TAKE 1 TABLET BY MOUTH DAILY gabapentin 300 mg capsule 300 mg PO HS lisinopril [Zestril] 2.5 mg tablet 2.5 mg PO HS cyclobenzaprine 5 mg tablet 5 mg PO QDD Rx Instructions: TAKE ONE TABLET BY MOUTH ONCE DAILY. cholecalciferol (vitamin D3) [Vitamin D3] 25 mcg (1,000 unit) Tablet 25 mcg PO PM Discharge Orders: Discharge Order (Routine); Ordered 03/13/22 Ordered By: Casey Foster Admission Data Admit Date/Time: 03/12/22 09:14 Attending Provider: Casey Foster Admit Provider: Casey Foster Primary Care Provider: Sohan Woo Other Providers: Bridget Joseph
[2022-03-13] MEDS ORDERED: CETIRIZINE HCL 10 MG TABLET PO SCH (09:00)
[2022-03-13] MEDS ORDERED: dexAMETHasone 6 MG in SYRINGE 0 ML IV SCH (09:00)
[2022-03-13] MEDS ORDERED: lisinopril 2.5 MG TAB PO SCH (21:00)
== END 2022-03-13 14:36 | disposition home or self-care (01) | DRG 472 ==
LOC: ASU 06:07 → PACUINP 09:14 → 3E 12:28
DX: D62 Acute posthemorrhagic anemia; Z88.5 Allergy status to narcotic agent; G99.2 Myelopathy in diseases classified elsewhere; D64.89 Other specified anemias; E66.9 Obesity, unspecified; Z68.35 Body mass index [BMI] 35.0-35.9, adult; E78.5 Hyperlipidemia, unspecified; M54.12 Radiculopathy, cervical region; I10 Essential (primary) hypertension; M48.02 Spinal stenosis, cervical region; Z87.891 Personal history of nicotine dependence; Z79.899 Other long term (current) drug therapy; A60.02 Herpesviral infection of other male genital organs

== ENCOUNTER 2023-05-25 05:08 | Observation (INO) ==
--- NOTE | 2023-04-23 09:38 | PAT Medication Instructions ---
Medication Instructions Date of Service April 23, 2023 Home Medications Medication Instructions Recorded gabapentin 300 mg capsule 300 mg PO HS #90 caps 08/28/22 valacyclovir 500 mg tablet 500 mg PO HS #90 tabs 10/22/22 (Valtrex) cyclobenzaprine 5 mg tablet 5 mg PO DAILY muscle spasm #90 tabs 01/20/23 simvastatin 10 mg tablet (Zocor) 10 mg PO HS #90 tabs 02/17/23 acetaminophen 500 mg tablet (Tylenol Extra Strength) 3,000 mg PO DAILY PRN acyclovir 5 % topical ointment 1 appln topical ONCE PRN ascorbic acid (vitamin C) 1,000 mg tablet 2.5 gm PO TID biotin 10,000 mcg capsule 10,000 mcg PO PM glucosamine 750 km-nxmoowfvm-rxh no.7 644 mg-vit Z-ananrg-kbczh tablet (Glucosamine-Chondr Cmplx (boswellia)) 1 tab PO TID multivitamin (Daily Multi-Vitamin tablet) 1 tab PO QAM omega-3 acid ethyl esters 1 gram capsule 1 cap PO TID cetirizine 10 mg tablet (Zyrtec) 10 mg PO QAM cholecalciferol (vitamin D3) 25 mcg (1,000 unit) tablet (Vitamin D3) 25 mcg PO PM gabapentin 300 mg capsule 300 mg PO HS valacyclovir 500 mg tablet (Valtrex) 500 mg PO HS cyclobenzaprine 5 mg tablet 5 mg PO DAILY simvastatin 10 mg tablet (Zocor) 10 mg PO HS Continue as directed acetaminophen 500 mg tablet (Tylenol Extra Strength) 3,000 mg PO DAILY PRN(if needed) cyclobenzaprine 5 mg tablet 5 mg PO DAILY STOP taking 2 weeks before surgery (or as soon as possible if surgery is within 2 weeks) biotin 10,000 mcg capsule 10,000 mcg PO PM glucosamine 750 rx-hppufyeej-mip no.7 644 mg-vit G-paqkur-nmaex tablet (Glucosamine-Chondr Cmplx (boswellia)) 1 tab PO TID omega-3 acid ethyl esters 1 gram capsule 1 cap PO TID STOP taking 24 hours before surgery acyclovir 5 % topical ointment 1 appln topical ONCE PRN DO NOT take the morning of surgery ascorbic acid (vitamin C) 1,000 mg tablet 2.5 gm PO TID multivitamin (Daily Multi-Vitamin tablet) 1 tab PO QAM cetirizine 10 mg tablet (Zyrtec) 10 mg PO QAM Take morning of surgery With a small sip of water, OTHERWISE NOTHING TO EAT OR DRINK AFTER MIDNIGHT: Take evening before surgery ascorbic acid (vitamin C) 1,000 mg tablet 2.5 gm PO TID cholecalciferol (vitamin D3) 25 mcg (1,000 unit) tablet (Vitamin D3) 25 mcg PO PM gabapentin 300 mg capsule 300 mg PO HS valacyclovir 500 mg tablet (Valtrex) 500 mg PO HS simvastatin 10 mg tablet (Zocor) 10 mg PO HS Other Notes If you have any questions please call us at [phone] or [phone] or [phone] or [phone]
--- NOTE | 2023-04-27 13:12 | Anesthesiology Consultation ---
Date of Service April 27, 2023 Assessment & Plan (1) Encounter for pre-operative examination: Chart Review Chart Review: Acceptable Risk for Surgery and Patient seen in Pre Admission Testing - Patient is NOT an OPJ candidate due to nature of procedure (bilateral TKA) Per PAT appt on 04/27/23, no recent illness/disease exposures, illness related symptoms, or recent illness/disease positive tests. Will leave to surgeon's discretion if preop Covid testing needed C6-7 ACDF; C5 corpectomy 03/12/22= Done under GA with Grade 2 view with Glidescope #4.0. ETT #8.0. Atraumatic Teaching & Discussion Pre-Anesthesia Teaching/Discussion Notes: Instructed NPO after midnight before surgery,except medications with 15 cc of water. Medication instructions provided according to the [facility] guidelines. History Surgery Operation Date: 05/25/23 07:00 Proposed Procedures p Bilateral Total Knee Arthroplasty - Sohan Thacker, Height/Weight Height: 5 ft 7 in Weight: 112.1 kg Allergies Allergy/AdvReac Type Severity Reaction Status Date / Time codeine Allergy Intermediate Rash Verified 04/20/23 16:41 oxycodone [From Percocet] Allergy Intermediate Rash Verified 04/20/23 16:41 Medications Home Medications Medication Instructions Recorded Confirmed Last Taken acetaminophen 500 mg tablet 3,000 mg PO DAILY PRN Pain 03/03/19 04/20/23 03/12/22 05:15 (Tylenol Extra Strength) acyclovir 5 % topical ointment 1 appln topical ONCE PRN Rash 03/03/19 04/20/23 Unknown ascorbic acid (vitamin C) 1,000 mg 2.5 gm PO TID 03/03/19 04/20/23 03/11/22 21:00 tablet biotin 10,000 mcg capsule 10,000 mcg PO PM 03/03/19 04/20/23 03/11/22 21:00 glucosamine 750 [id number] 1 tab PO TID 03/03/19 04/20/23 02/26/22 no.7 644 mg-vit [id number] tablet (Glucosamine-Chondr Cmplx (boswellia)) multivitamin (Daily Multi-Vitamin 1 tab PO QAM 03/03/19 04/20/23 03/11/22 06:00 tablet) omega-3 acid ethyl esters 1 gram 1 cap PO TID 03/03/19 04/20/23 02/26/22 capsule cetirizine 10 mg tablet (Zyrtec) 10 mg PO QAM 03/10/19 04/20/23 03/11/22 06:00 cholecalciferol (vitamin D3) 25 25 mcg PO PM 02/19/22 04/20/23 03/11/22 21:00 mcg (1,000 unit) tablet (Vitamin D3) gabapentin 300 mg capsule 300 mg PO HS #90 caps 08/28/22 04/20/23 Unknown valacyclovir 500 mg tablet 500 mg PO HS #90 tabs 10/22/22 04/20/23 Unknown (Valtrex) cyclobenzaprine 5 mg tablet 5 mg PO DAILY muscle spasm #90 tabs 01/20/23 04/20/23 Unknown simvastatin 10 mg tablet (Zocor) 10 mg PO HS #90 tabs 02/17/23 04/20/23 Unknown Past Medical History Medical History Basal cell carcinoma - upcoming MOHS procedure scheduled 05/20/23 ([facility]) - removing from left ear- per patient- Dr Thacker aware and okay with patient proceeding with Mohs procedure prior to TKAs Hearing loss No hearing aids HTN (hypertension) hx- no longer on BP medications Dyslipidemia Lung nodules Under surveillance- most recent CT scan 12/2022- multiple tiny pulmonary nodules are unchanged- no additional follow up is required Lumbar spinal stenosis Aortic root dilatation Mildly dilated aortic root and ascending aorta dilation per 2018 stress echo H/O prostate cancer s/p prostatectomy (diagnosed 2005)- no chemo or XRT Exercise / Class Metabolic Activity II 4-5 Yardwork/Stairs/Walk up hill (one flight of stairs- no chest pain or SOB ) Past Family History Family History Father Colorectal cancer Prostate cancer Mother Pancreatitis Denies family history of Ovarian cancer Diabetes Myocardial infarction Breast cancer Lung cancer Stroke Past Surgical History Surgical History History of fusion of cervical spine limited ROM up, side to side History of tooth extraction Hx of umbilical hernia repair History of colonoscopy History of prostate surgery Prostatectomy (Dr. Harris) History of appendectomy Past Anesthesia History No Hx of Anesthesia Complications and No Family Hx of Anesthesia Complications History of PONV No Hx of PONV and No Hx of Motion Sickness Social History Smoking Status: Former smoker Do You Dip or Chew Tobacco: No Smoking End Date: 1988 Hx Alcohol Use: No Hx Substance Use: No substance use type: does not use Review of Systems - Chronic cough/occ - rarely productive - x years - stable - Occ sneezing- chronic- possibly allergy related - Hx of snoring- no hx of sleep study - Hx of blood transfusions (own blood)- 2005- s/p prostatectomy Patient denies chest pain, shortness of breath, dyspnea on exertion, reflux, wheezing, palpitations. No hx of seizures, stroke, [place]. No hx of blood clots or blood transfusions Physical Exam Vital Signs VITALS BP 130/84 P 78 TEMP 97.7 SP02 96% RESP 16 Constitutional no acute distress ENMT Mouth: no TMJ clicking Thyromental Distance: > or= 3.5 Finger Breadths (4.0) Mallampati Class: II Full dentures on top and bottom Neck + limited neck extension (significant ) Respiratory normal respiratory effort; no respiratory distress Auscultation: lungs clear to auscultation bilaterally; no wheezes Cardiovascular Rate/Rhythm: regular rate and regular rhythm Heart Sounds: no murmur Vessels: no carotid bruit Musculoskeletal Spine: + pain with cervical ROM Extremities: extremities normal to inspection Psychiatric Orientation: alert Lab Results Anesthesia Preop Results Results Anesthesia Widget: WBC 6.23 K/ul (4.8-10.8) 04/27/23 Hgb 14.0 g/dl (14.0-18.0) 04/27/23 Hct 41.2 % (42.0-52.0) L 04/27/23 Plt 251 K/uL (130-400) 04/27/23 Na 140 mmol/L (136-145) 04/27/23 K 3.9 mmol/L (3.5-5.1) 04/27/23 Cl 107 mmol/L (98-107) 04/27/23 CO2 26 mmol/L (21-32) 04/27/23 BUN 16 mg/dl (6-23) 04/27/23 Creat 0.92 mg/dl (0.6-1.4) 04/27/23 Glucose Level 90 mg/dl (70-99(Fasting)) 04/27/23 PT 10.5 Seconds (9.0-12.0) 04/27/23 PTT 28.5 Seconds (21.0-31.0) 04/27/23 INR 1.0 (0.9-1.1) 04/27/23 Blood Type O Positive 04/27/23 Antibody Screen NEGATIVE 04/27/23 Testing Electrocardiogram Date: 04/27/23 NSR with sinus arrhythmia at 70bpm RBBB LAFB Bifascicular block When compared to EKG from Feb 26, 2022- nonspecific T wave abnormality now evident in inferior leads per cardio (Discussed with Dr. Gore- good functional status- negative 2017 stress test- patient can proceed as scheduled) Chest X-Ray Date: 04/27/23 FINDINGS: No pneumothorax. No pleural effusions. A few bibasilar linear densi ties favor subsegmental atelectasis or scarring. Otherwise, the lungs are clear. There are low lung volumes. The cardiac silhouette is mildly enlarged. No focal lung consolidations to suggest pneumonia. No evidence for pulmonary edema. There is a mildly tortuous thoracic aorta. Cervical spinal fusion hardware is noted. Degenerative changes and mild dextroscoliosis of the visualized lumbar spine. IMPRESSION: 1. Bibasilar linear densities favor subsegmental atelectasis or scarring. 2. Stable mild cardiomegaly. Stress Test Date: 03/01/18 Exercise METS 5 MPHR 90% EF 60-65% No regional wall motion abnormalities No LVH Mild aortic regurgitation Mildly dilated aortic root and ascending aorta
--- OUTSIDE RECORDS SUMMARY | 2023-05-25 05:33 | External Medical Summary | Continuity of Care Document ---
Author Name Unknown Organization [facility] [address] [facility] [address] [id number] Care Team Providers Care Lumber Piler Operator Name Role Phone Sohan Woo Primary Care Physician [phone] Encounter [facility] [id number] Date(s): 05/20/23 - 05/20/23 [facility] [address] [facility] [address] [phone] Encounter Diagnosis Carcinoma of skin(Discharge Diagnosis) - 05/20/23 Discharge Disposition: Home or Self Care Attending Physician: MD Martin Cassandra Referring Physician: MD Ramesh, Seema Crowley Allergies, Adverse Reactions, Alerts Substance Reaction Severity Status codeine Rash Active Percocet 5/325 Rash Active Medications biotin 1000 mcg oral tablet Start: 05/27/13 15:36:00, 1 tab, PO, Daily Start Date: 05/27/13 Status: Ordered chondroitin-glucosamine Start: 05/30/11 8:05:00, PO, Daily, tab Start Date: 05/30/11 Status: Ordered cyclobenzaprine 5 mg oral tablet TAKE 1 TABLET BY MOUTH ONCE DAILY FOR MUSCLE SPASM Start Date: 05/22/20 Status: Ordered Fish Oil Start: 05/30/11 8:05:00, 1,000 mg =, PO, tid, cap Start Date: 05/30/11 Status: Ordered gabapentin 300 mg oral capsule Start: 05/30/11 8:02:00, 1 cap, PO, Daily Start Date: 05/30/11 Status: Ordered Multiple Vitamins oral tablet Start: 05/30/11 8:04:00, 1 tab, PO, Daily, dose unknown Start Date: 05/30/11 Status: Ordered unlisted medication Start: 11/25/19 15:06:00 EDT Start Date: 11/25/19 Status: Ordered Valtrex 500 mg oral tablet Start: 05/30/11 8:01:00, 1 tab, PO, q24h Start Date: 05/30/11 Status: Ordered Vitamin C 1000 mg oral tablet Start: 05/27/13 15:34:00, 1 tab, PO, Daily Start Date: 05/27/13 Status: Ordered Vitamin D3 1000 intl units oral capsule Start: 05/28/17 9:41:00, 1 cap, PO, Daily Start Date: 05/28/17 Status: Ordered Zocor 10 mg oral tablet Start: 05/30/11 8:03:00, 1 tab, PO, qhs Start Date: 05/30/11 Status: Ordered ZyrTEC 10 mg oral tablet Start: 05/27/19 15:12:00 EST, 1 tab, PO, Daily Start Date: 05/27/19 Status: Ordered Mental Status 05/20/23 Barriers to Learning one year None evide nt Mandatory Health Literacy Documentation Yes Communication Barrier Present No Health Literacy Communication Barriers N ever Primary Language Georgian Problem List Condition Confirmation Course Effective Dates Status H ealth Status Informant Changing skin lesion Confirmed Active Elevated cholesterol Confirmed Active History of basal cell cancer 1 Confirmed Active Hypertension Confirmed Active Osteoarthritis of knee Confirmed Active 1bcc removed 05/19/[address] stiles Diagnosis Diagnosis Type Effective Dates Health Status Cl inical Service Informant Carcinoma of skin Discharge Diagnosis 05/20/23 Procedures Procedure Date Related Diagnosis Body Site Status Electrodesiccation with curettage 05/20/23 Completed Mohs' chemosurgery 05/20/23 Comple leona Shave biopsy and cauterization of skin 03/11/23 Completed Shave biopsy and cauterization of skin 03/11/23 Completed Curettage and cauterization of skin lesion 1 11/18/22 Completed Neck 03/2022 Completed Shave biopsy 2 11/21/21 Completed Shave biopsy of skin/ED&C 11/30/17 Completed Repair of umbilical hernia 01/2016 Completed Mohs micrographic surgery 3 05/2011 Completed Prostatectomy 07/2005 Completed Appendectomy 1970 Completed 1left sideburn 2left lower cheek 3basal cell cancer removal under Left eye Social History Social History Type Response Smoking Status Former Smoker, quit > 1 yr Sex Male Dermatology Outpt Proc * CONNER Carlisle, Erin Martin: PERFORM Event Display: Dermatology Outpt Proc Authored Date: [id number] DERMATOLOGY MOHS MAPPING IMAGES Name: ELSI HOUSE Patient Number: [id number] : 1945 Date of Service: 05/20/2023 _ Electronic Signature on File Electronically Reviewed/Signed by: Erin Carlisle Author Signature Dt/Tm:05/20/2023 01:54 PM Electronically Reviewed/Signed by: Keira Martin MD Cosigner Signature Dt/Tm: 05/20/2023 02:36 PM Department of Dermatology [facility] Patient Care team information Care Team Personnel Name: DO Woo Brian R Position: Referring Member Role: Primary Care Provider Address: Address: [address] [place] [address] Care Team Related Persons Name: DORISBALA HERNANDEZ Address: home [address] [place] [phone]
[2023-05-25] MEDS ORDERED: Ketorolac (*for OR use only*) 30 MG, dexAMETHasone 4 MG, KETAMINE HCL (**OR use only) 1... INFIL SCH (06:00)
[2023-05-25] MEDS ORDERED: FAMOTIDINE 20 MG TAB PO SCH (06:00)
[2023-05-25] MEDS ORDERED: ceFAZolin 2000MG 2,000 MG/15 ML SYR IV SCH (06:00)
[2023-05-25] MEDS ORDERED: dexAMETHasone 4 MG TAB PO SCH (06:00)
[2023-05-25] MEDS ORDERED: LR 60ML/HR IV SCH (06:00)
[2023-05-25] MEDS ORDERED: GABAPENTIN 300 MG CAP PO SCH ×2 (06:00→21:00)
[2023-05-25] MEDS ORDERED: ACETAMINOPHEN 500 MG TAB PO SCH (06:00)
[2023-05-25] MEDS ORDERED: LR 500ML BOLUS, THEN 15ML/HR IV SCH (06:00)
[2023-05-25] MEDS ORDERED: TRANEXAMIC ACID 1,000 MG **IV Intra-op IV SCH (06:00)
[2023-05-25] MEDS ORDERED: TRANEXAMIC ACID 1,000 MG **IV Pre-op IV SCH (06:00)
[2023-05-25] MEDS ORDERED: BUPIVACAINE 0.5 % 5 MG/1 ML PF 10ML VIAL ONE (06:18)
[2023-05-25] MEDS ORDERED: BUPIVACAINE 0.25% PF 30 ML VIAL ONE (06:19)
--- NOTE | 2023-05-25 06:37 | History & Physical Bridge Note ---
Date of Service May 25, 2023 History & Physical Bridge Note I have examined the patient, reviewed the History & Physical and in the interval since the performance of the History & Physical I have noted the following changes of clinical significance: no changes noted
[2023-05-25] MEDS ORDERED: MIDAZOLAM HCL 1 MG/ML 2ML VIAL ONE (06:44)
[2023-05-25] MEDS ORDERED: DexMEDEtomidine HCL IV 100 MCG/ML VIAL IV ONE (06:47)
[2023-05-25] MEDS ORDERED: ORTHO JOINT ANESTHETIC ONE (06:57)
[2023-05-25] MEDS ORDERED: ATROPINE SULFATE 0.1 MG/ML 10ML SYR IV PRN (07:35)
[2023-05-25] MEDS ORDERED: ONDANSETRON INJ 2 MG/ML 2 ML VIAL IV PRN ×2 (07:35→11:01)
[2023-05-25] MEDS ORDERED: fentaNYL citrate PF 100 MCG/2 ML VIAL IV PRN (07:35)
[2023-05-25] MEDS ORDERED: PROMETHAZINE HCL 6.25 MG in SODIUM CHLORIDE 0.9% 50 ML IV PRN (07:35)
[2023-05-25] MEDS ORDERED: ONDANSETRON INJ 2 MG/ML 2 ML VIAL ONE (07:39)
[2023-05-25] MEDS ORDERED: PHENYLEPHRINE 100MCG/ML 10ML SYR IV ONE (07:39)
[2023-05-25] MEDS ORDERED: PROPOFOL IV EMULSION 10 MG/ML 20 ML VIAL IV ONE (07:39)
[2023-05-25] MEDS ORDERED: PHENYLEPHRINE HCL 10 MG/ML VIAL ONE (08:33)
--- NOTE | 2023-05-25 09:10 | Operative Report ---
PG Post Operative Report Pre & Post Diagnosis Operation Date: 05/25/23 07:00 Pre-Op Diagnosis: Bilateral Knees Degenerative Joint Disease Post-Op Diagnosis: Bilateral Knees Degenerative Joint Disease I identified the patient and participated in the time-out.: Yes Procedure Operation Date: 05/25/23 07:00 Actual Procedures p Bilateral Total Knee Arthroplasty(Bilateral) - Sohan Thacker DO Surgeon Sohan Thacker DO Thread Cutter Sohan De Santiago, PSA Estimated Blood Loss 60 Findings Consistent with Post-Op Diagnosis Specimens Bilateral femoral and tibial bone Description of Procedure Ulysses arrived [facility] for the above procedure. He was seen in the preoperative holding area and both knees were identified and signed. He was given a preoperative antibiotic, TXA, a spinal anesthetic and adductor nerve blocks. He was taken back to the operating room and laid on the table in supine position. He was given basic sedation. Both knees were then prepped and draped in sterile fashion. A timeout was done, and the patient and the operative extremities were properly identified. Right knee implants used: I used a Junie Persona total knee arthroplasty system with a size 11 PS femur, G tibia, 34 oval patella, and a size 11 CPS polyethylene bearing. All components were cemented in place with Palacos G cement. A midline incision was made directly over the patella. Dissection was taken down to the extensor mechanism. A medial parapatellar arthrotomy was used. The medial retinaculum was released and the fat pad was mostly excised. The knee was flexed and the ACL, PCL, and meniscus were removed. A drill was sent down the center of the femoral canal followed by an intramedullary maddie. Off that maddie a distal femoral cutting block was placed. 9 mm was resected off the distal femur at 5 of valgus. A posterior referencing AP sizing guide was then placed on the distal femur. The femur measured to be a size 11. 2 drill holes were placed in 3 of external rotation. A 4-in-1 cutting block was then impacted into place. Anterior, posterior, and chamfer cuts were then made. The proximal tibia was then exposed. An external tibial alignment guide was placed. A tibial cut guide was then anchored in place and the proximal tibia was then resected. The posterior aspect of the knee was then opened up and any additional meniscus fragments and osteophytes were removed. The tibia measured to be a size G. The tibial plate was then placed in the appropriate rotation and the tibia was drilled and punched. Trial components were then placed. I used a size 10 CPS polyethylene insert. The knee was brought through a full range of motion and felt to be stable. The peg holes for the femur were then drilled. The patella was then everted and 9 mm was resected off the posterior aspect of the patella. The patella measured to be a size 34 oval. 3 peg holes were then drilled. A trial patella was placed. The knee was once again brought through a full range of motion and felt to be stable. Trial components were then removed. The surrounding soft tissues were injected with 50 cc of an orthopedic pain control cocktail. All components were then cemented into place with Palacos G cement. The final polyethylene insert was then snapped into place. Once cement was dry the tourniquet was deflated. Hemostasis was obtained. A dilute betadyne lavage was then done for 3 minutes. The joint was then irrigated with normal saline solution. The medial parapatellar arthrotomy was then closed with #1 Vicryl suture. The skin was closed with 2-0 Vicryl, 3-0V lock suture, and torri. A Silverlon and a soft compressive dressing were placed. Left knee implants used: I used a Junie Persona total knee arthroplasty system with a size 11 PS femur, G tibia, 34 oval patella, and a size 10 CPS polyethylene bearing. All components were cemented in place with Palacos G cement. A midline incision was made directly over the patella. Dissection was taken down to the extensor mechanism. A medial parapatellar arthrotomy was used. The medial retinaculum was released and the fat pad was mostly excised. The knee was flexed and the ACL, PCL, and meniscus were removed. A drill was sent down the center of the femoral canal followed by an in tramedullary maddie. Off that maddie a distal femoral cutting block was placed. 9 mm was resected off the distal femur at 5 of valgus. A posterior referencing AP sizing guide was then placed on the distal femur. The femur measured to be a size 11 G. 2 drill holes were placed in 3 of external rotation. A 4-in-1 cutting block was then impacted into place. Anterior, posterior, and chamfer cuts were then made. The proximal tibia was then exposed. An external tibial alignment guide was placed. A tibial cut guide was then anchored in place and the proximal tibia was then resected. The posterior aspect of the knee was then opened up and any additional meniscus fragments and osteophytes were removed. The tibia measured to be a size . The tibial plate was then placed in the appropriate rotation and the tibia was drilled and punched. Trial components were then placed. I used a size 10 CPS polyethylene insert. The knee was brought through a full range of motion and felt to be stable. The peg holes for the femur were then drilled. The patella was then everted and 9 mm was resected off the posterior aspect of the patella. The patella measured to be a size 34 oval. 3 peg holes were then drilled. A trial patella was placed. The knee was once again brought through a full range of motion and felt to be stable. Trial components were then removed. The surrounding soft tissues were injected with 50 cc of an orthopedic pain control cocktail. All components were then cemented into place with Palacos G cement. The final polyethylene insert was then snapped into place. Once cement was dry the tourniquet was deflated. Hemostasis was obtained. A dilute betadyne lavage was then done for 3 minutes. The joint was then irrigated with normal saline solution. The medial par apatellar arthrotomy was then closed with #1 Vicryl suture. The skin was closed with 2-0 Vicryl, 3-0V lock suture, and torri. A Silverlon and a soft compressive dressing were placed. He was then transferred to a hospital bed and taken to the postanesthesia care unit in stable condition. He tolerated the procedure well. Sohan De Santiago PA-C, was present for the entire procedure. He was critical for patient positioning, prepping, draping, retraction exposure, wound closure and application of sterile dressing. I attest to the content of the Intraoperative Record and any orders documented therein. Any exceptions are noted below.
--- NOTE | 2023-05-25 09:55 | XRay Report ---
XR knee RT 1 or 2V routine CLINICAL HISTORY: Postoperative evaluation. COMPARISON: Right knee radiographs April 28, 2023. FINDINGS: Alignment of the total right knee arthroplasty is anatomic. There is no periprosthetic fra cture or unexpected radiopaque foreign body. There are skin torri. IMPRESSION: Expected findings following total right knee arthroplasty. ACT 112: Negative or not required by law. Electronically signed by: Anthony Tom M.D. 05/25/2023 9:54 AM
[2023-05-25] MEDS: ePHEDrine sulfate 50 MG/ML AMP IV PRN ×2 (10:01→10:11)
--- NOTE | 2023-05-25 10:05 | XRay Report ---
LEFT KNEE 2 VIEWS History: Left total knee arthroplasty. Degenerative arthritis. Postop. FINDINGS: The patient is status post a left total knee arthroplasty. The hardware is intact. No fract ure or dislocation. Skin torri are in place. IMPRESSION: Left total knee arthroplasty. No evidence for hardware complication. ACT 112: Negative or not required by law. Electronically signed by: Jacob Yanez M.D. 05/25/2023 10:04 AM
[2023-05-25] MEDS ORDERED: METOCLOPRAMIDE HCL INJ 5 MG/ML 2 ML VIAL IV PRN (11:01)
[2023-05-25] MEDS ORDERED: HYDROmorphone INJ 0.5 MG/0.5 ML SYR IV PRN (11:01)
[2023-05-25] MEDS ORDERED: NALOXONE HCL 0.4 MG/1 ML VIAL/CARP IV PRN (11:01)
[2023-05-25] MEDS ORDERED: bisacodyL 10 MG SUPP PR PRN (11:01)
[2023-05-25] MEDS ORDERED: ACYCLOVIR 5% OINT 15 GM TUBE EXT PRN (11:01)
[2023-05-25] MEDS ORDERED: MAGNESIUM HYDROXIDE SUSP 30 ML UDC PO PRN (11:01)
[2023-05-25] MEDS: SODIUM CHLORIDE 0.9% 1,000 ML IV SCH ×2 (12:15→22:01)
[2023-05-25] MEDS: KETOROLAC TROMETHAMINE 15 MG/ML VIAL IV SCH ×3 (12:15→22:02)
[2023-05-25] MEDS: traMADol HCL 50 MG TABLET PO PRN ×2 (13:18→17:22)
[2023-05-25] MEDS: ceFAZolin 2000MG 2,000 MG/15 ML SYR IV SCH ×2 (14:50→22:03)
[2023-05-25] MEDS: ACETAMINOPHEN 500 MG TAB PO SCH ×2 (14:50→22:01)
--- NOTE | 2023-05-25 15:18 | Anesthesiology Progress Note ---
Date of Service May 25, 2023 Anesthesia Post Procedure Vital Signs Vital Signs: Temp Pulse Pulse Resp BP Pulse Ox O2 Del Method 05/25/23 14:18 36.4 C L 93 H 18 117/74 93 Room Air 05/25/23 13:06 36.3 C L 84 16 111/64 95 Room Air 05/25/23 12:02 36.8 C 81 18 126/78 97 Room Air 05/25/23 11:31 36.3 C L 64 16 111/67 99 Room Air 05/25/23 11:01 36.4 C L 59 L 16 102/61 100 Nasal Cannula 05/25/23 10:45 36.3 C L 58 L 15 96/64 L 100 Nasal Cannula 05/25/23 10:35 64 13 92/57 L 98 Nasal Cannula 05/25/23 10:25 65 13 90/58 L 100 Nasal Cannula 05/25/23 10:15 66 20 111/67 99 Nasal Cannula 05/25/23 10:05 66 18 95/59 L 89 L Room Air 05/25/23 09:55 65 15 95/59 L 95 Room Air 05/25/23 09:45 60 19 91/47 L 99 Room Air 05/25/23 09:35 61 14 77/49 L 100 Oxymask 05/25/23 09:25 36.2 C L 90 17 100/63 99 Oxymask 05/25/23 05:45 36.5 C 83 18 151/98 H 93 Room Air O2 Flow Rate 05/25/23 14:18 05/25/23 13:06 05/25/23 12:02 05/25/23 11:31 05/25/23 11:01 2 05/25/23 10:45 2 05/25/23 10:35 2 05/25/23 10:25 2 05/25/23 10:15 2 05/25/23 10:05 05/25/23 09:55 05/25/23 09:45 05/25/23 09:35 4 05/25/23 09:25 6 05/25/23 05:45 Pain Intensity Bilateral Knee: Pain Intensity: 2 Transfer of Care Handoff Completed per policy Notes Mental Status: alert / awake / arousable and participated in evaluation Patient Amnestic to Procedure: Yes Nausea / Vomiting: adequately controlled Pain: adequately controlled Airway Patency, RR, SpO2: stable & adequate BP & HR: stable & adequate Hydration State: stable & adequate Neuraxial Anesthesia: was administered and sensory block is resolving Anesthetic Complications: no major complications apparent and Pt Satisfied with anesthetic care
[2023-05-25] MEDS: ASPIRIN 81 MG ECTAB PO SCH (19:54)
[2023-05-25] MEDS: DOCUSATE SODIUM 100 MG CAP PO SCH (19:55)
[2023-05-25] MEDS ORDERED: valACYclovir HCL 500 MG TABLET PO SCH (21:00)
[2023-05-25] MEDS ORDERED: SIMVASTATIN 10 MG TAB PO SCH (21:00)
[2023-05-25] MEDS ORDERED: SENNA 8.6 MG TAB PO SCH (21:00)
[2023-05-26] MEDS: KETOROLAC TROMETHAMINE 15 MG/ML VIAL IV SCH ×2 (05:51→10:34)
[2023-05-26] MEDS: ACETAMINOPHEN 500 MG TAB PO SCH (05:52)
[2023-05-26] MEDS ORDERED: dexAMETHasone 4 MG TAB PO SCH (08:00)
[2023-05-26] MEDS: DOCUSATE SODIUM 100 MG CAP PO SCH (08:51)
[2023-05-26] MEDS: ASPIRIN 81 MG ECTAB PO SCH (08:52)
[2023-05-26] MEDS ORDERED: CETIRIZINE HCL 10 MG TABLET PO SCH (09:00)
[2023-05-26] MEDS ORDERED: CYCLOBENZAPRINE HCL 5 MG TAB PO SCH (09:00)
[2023-05-26] MEDS ORDERED: MULTIVITAMIN TAB PO SCH (09:00)
--- NOTE | 2023-05-26 09:30 | Orthopedic Progress Note ---
Date of Service May 26, 2023 Assessment & Plan (1) Status post bilateral knee replacements: Overall, he is doing quite well today and has good pain control to his bilateral knees. He is set to work with physical therapy today to work on ambulation and range of motion exercises. He is currently on aspirin for DVT prophylaxis. He can be discharged later today after evaluated by physical therapy. He will follow-up with orthopedics in 2 weeks for postoperative care. Subjective . Ulysses was seen and evaluated this morning resting comfortably in bed in no apparent distress. He notes that his pain is well-controlled and actually better than it has been for the last couple weeks. He notes that he has not been out of bed yet today. He will be seen by physical therapy later today. He denies any other concerns. Review of Systems All systems reviewed & are unremarkable except as noted in HPI & below. Physical Exam . On physical examination of his bilateral knees, his dressings are clean, dry, and intact. His legs are on full extension. He has active plantarflexion dorsiflexion bilaterally. +2 DP and PT pulses. Less than 2-second capillary refill. Normal sensation. Neurovascular intact. Results & Data Results & Data Laboratory Results . Diagnostic Findings . Postoperative x-rays of the bilateral knees show prosthesis to be in anatomical alignment with no signs of fracture complication or loosening. PG Care Time/CCT Total # of Minutes Spent Total Time Spent with Patient: Total time spent is greater than 50% in coordination of care (as documented) at patient's floor/unit and/or counseling patient: Coding Level of Care Code 59261 Post Operative Follow-Up Diagnoses Status post bilateral knee replacements Z96.653
--- NOTE | 2023-05-26 09:32 | Discharge Summary ---
Date of Service May 26, 2023 Principal Diagnosis Same as "Discharge Diagnosis" noted below under Discharge Instructions. Discharge Exam . On physical examination of his bilateral knees, his dressings are clean, dry, and intact. His legs are on full extension. He has active plantarflexion dorsiflexion bilaterally. +2 DP and PT pulses. Less than 2-second capillary refill. Normal sensation. Neurovascular intact. Discharge Data Procedures Performed Operation Date: 05/25/23 07:00 Actual Procedures p Bilateral Total Knee Arthroplasty(Bilateral) - Sohan Thacker DO Ordered Studies 05/25/23 00:55 US - OR guided needle placemen Routine Hospital Course (1) Status post bilateral knee replacements: On May 25, 2023 Ulysses arrived at [facility] and underwent a bilateral total knee arthroplasty without complications. He had a spinal anesthetic. Postoperatively, he was started on aspirin for DVT prophylaxis and transferred to the general orthopedic floor in stable condition. His hospital course was uneventful. On postoperative day #1, his vital signs were stable and his pain was well-controlled. He participated well with physical therapy doing ambulation and range of motion exercises. He was then discharged home in stable condition. He is going to follow-up with orthopedics in 2 weeks for postoperative care. PG Care Time/CCT Total # of Minutes Spent Total Time Spent with Patient: Total time spent is greater than 50% in coordination of care (as documented) at patient's floor/unit and/or counseling patient: Discharge Plan Discharge Items Patient Disposition: Home - Home Health Services Reason For Visit: Bilateral Knees Degenerative Joint Disease Discharge Diagnosis: Bilateral knee replacement Activity: Per Instructions section Non-emergency contact: Surgeon Call non-emergency contact if: your wound has increased redness and your wound has increased drainage Follow-up/Referrals: Sohan Woo DO [Primary Care Provider] - Diet: Regular Addtl Attending Provider Instructions: Activity and Therapy Recommendations: * If you are using [facility] then therapy will be provided at your home until they feel you have accomplished all of your goals. * If you are using [facility] then Physical Therapy will be provided until they feel you are ready to start Outpatient Physical Therapy. * If you are not using home therapy then Outpatient Physical Therapy should start about 3-5 days from your day of surgery. Therapy will last about 6-10 weeks * It is important not to put a pillow under your knee when you are relaxing or sleeping. It is just as important to make sure you are getting your knee perfectly straight as it is to regain your knee bend. * You were shown a series of exercises in the hospital. Do these exercises three times each day including the exercises you were shown in physical therapy. * Get up and walk several times each day. For the first four weeks, try not to stand or walk for more than one hour at a time. If you do stand or walk for more than one hour, you will not hurt anything, but your leg will likely swell. * As you feel comfortable, you may change from the walker or crutches to a cane and then to independent walking. Medications: * Narcotic You will likely be sent home from the hospital with a prescription for the narcotic pain medication that worked best throughout your stay. * Cefadroxil -take the antibiotic twice a day for 10 days to help prevent i nfection. * Aspirin Most patients will be required to take Aspirin 81mg twice a day for 6 weeks after surgery. This is obtained [id number] and a prescription is not necessary. * Other medications may be prescribed for specific circumstances. If you have any questions, please call the office at . * Resume previous home medications unless otherwise instructed TEDs/Elastic Stockings: The white elastic stockings help limit swelling and prevent blood clots from forming in your legs.~ The more you wear them, the more they work. Wear them for six weeks. Dressing Care: The dressing can be changed after physical therapy on postop day #1. Daily dry dressing changes for a few days, especially if the incision is still draining some. If the incision is not draining then you may leave the torri open to air. If there is a little bit of drainage or if the torri are getting stuck on your clothing then cover the incision with a dry dressing. The torri will be removed at your 2 week follow-up appointment. Showering: You may shower 5 days from the day of surgery as long as the incision is no longer draining. You may shower with the torri exposed. Let soapy water run over the torri and pat them dry. Do not scrub or soak the incision. Things To Watch For: * Drainage from the incision site that occurs more than one week after your surgery. * Increased redness at the incision site. * Fever above 102 degrees Fahrenheit. * Unusual chest pain or shortness of breath. * Call [facility] at with any of the above problems Follow-Up Visit: Follow-up with Dr. Thacker's PA (Sohan De Santiago) 2-3 weeks after your day of surgery. He will remove your torri and answer any questions. If you have any additional questions or concerns, Dr Thacker is usually in the office at the same time and will be available An appointment was probably scheduled when you signed-up for surgery in the office. If you have any questions call Office Instructions: More detailed instructions as well as Frequently Asked Questions were provided in a folder by our office when you signed-up for surgery. Please review these instructions when you get home. If you have any further questions or concerns, please feel free to call the office at [phone] Pending Studies at Discharge: No Stand-Alone Forms: My [facility], Smoking Cessation Medications and DC Order Prescriptions: New aspirin 81 mg Tablet,Delayed Release (Dr/Ec) 81 mg PO BID 42 Days Qty: 0 0RF tramadol 50 mg Tablet 50 - 100 mg PO Q6 PRN (Reason: pain) Qty: 30 0RF cefadroxil 500 mg capsule 500 mg PO BID 10 Days Qty: 20 0RF Continued gabapentin 300 mg capsule 300 mg PO HS Qty: 90 3RF valacyclovir [Valtrex] 500 mg tablet 500 mg PO HS Qty: 90 3RF Rx Instructions: TAKE 1 TABLET BY MOUTH DAILY simvastatin [Zocor] 10 mg tablet 10 mg PO HS Qty: 90 3RF cyclobenzaprine 5 mg tablet 5 mg PO DAILY Qty: 90 1RF Rx Instructions: TAKE ONE TABLET BY MOUTH ONCE DAILY. acyclovir [Zovirax] 5 % ointment 1 appln topical ONCE PRN (Reason: Rash) biotin 10,000 mcg capsule 10,000 mcg PO PM Glucosamine-Chondr (boswellia) 866-393-82-1-3 mg tablet 1 tab PO TID multivitamin [Daily Multi-Vitamin] tablet 1 tab PO QAM omega-3 acid ethyl esters 1 gram capsule 1 cap PO TID acetaminophen [Tylenol Extra Strength] 500 mg tablet 500 mg PO DAILY PRN (Reason: Pain) ascorbic acid (vitamin C) 1,000 mg tablet 2.5 gm PO TID cetirizine [Zyrtec] 10 mg tablet 10 mg PO QAM cholecalciferol (vitamin D3) [Vitamin D3] 25 mcg (1,000 unit) Tablet 25 mcg PO PM Admission Data Admit Date/Time: 05/25/23 09:26 Attending Provider: Sohan Thacker Admit Provider: Sohan Thacker Primary Care Provider: Sohan Woo
[2023-05-26] MEDS: traMADol HCL 50 MG TABLET PO PRN (12:12)
== END 2023-05-26 12:57 | disposition home health service (06) ==
LOC: ASU 05:08 → 3E 05:08

== ENCOUNTER 2023-09-19 06:17 | Inpatient (IN) ==
--- NOTE | 2023-09-19 06:41 | Emergency Department Note ---
Impression & Plan Atrial fibrillation with rapid ventricular response, Elevated troponin, Shortness of breath ED Provider Note NAME: ELSI HOUSE AGE: 77 SEX: M : 1945 ARRIVES VIA: Walk-In INFORMANT: Patient ED PROVIDER(S): Vinny Esposito DO CHIEF COMPLAINT: Shortness of breath HPI: Patient is a 77-year-old male with a past medical history of hypertension, hyperlipidemia and aortic root dilation who presents to the ER for shortness of breath which has been present for the past 2 to 3 days. He admits to weakness associated with this and some intermittent chest tightness when he is up moving around. Denies any chest pain currently or shortness of breath. No belly pain, nausea, vomiting, or diarrhea. No dysuria, urgency, or frequency. No other exacerbating or remitting factors. ADDITIONAL HISTORY OBTAINED: Per HPI Chronic Medical/Social Conditions Affecting Care: Per HPI PAST MEDICAL HISTORY:See Below PAST SURGICAL HISTORY:See Below FAMILY HISTORY:See Below SOCIAL HISTORY:See Below HOME MEDICATIONS:See Below ALLERGIES:See Below VITALS:See Below PHYSICAL EXAMINATION: GENERAL: Sitting up in bed, alert, well appearing, well nourished, no distress, non-toxic EYE EXAM: normal conjunctiva. OROPHARYNX: mucous membranes are moist LUNGS: Clear to auscultation. Normal chest wall mechanics HEART: Tachycardic and irregular regular, S1 normal and S2 normal ABDOMEN: abdomen soft, non-tender, normo-active bowel sounds, no masses, no rebound or guarding. UPPER EXTREMITIES: upper extremities are grossly normal. LOWER EXTREMITIES: No pitting edema. NEURO EXAM: Normal sensorium, cranial nerves II-XII grossly intact, normal speech, no gross weakness of arms, no gross weakness of legs. MEDICAL DECISION MAKING: Patient is a 77-year-old male with a past medical history of hypertension, hyperlipidemia and aortic root dilation who presents ER for above-stated complaint. IV was established blood work was obtained. Labs show no significant leukocytosis or anemia. BMP with slightly elevated chloride. LFTs bilirubin was unremarkable. Troponin was elevated at nearly 34. Lipase elevated to 40. No belly pain. No nausea vomiting. EKG consistent with A-fib with RVR. He was given Cardizem bolus and placed on Cardizem drip. Heart rate trended down to the low 100s. He has no other complaints at this time. Patient was updated bedside discussed with Dr. Vinny Sexton for further evaluation management treatment. Consults/Care Managements Discussions: Per [facility] Triage Nursing notes reviewed. Limited review of prior medical records performed Vital Signs: reviewed and remarkable for tachycardic Differential diagnosis: Cardiac ischemia, aortic dissection, pulmonary embolism, pneumothorax, pneumonia, pericarditis, myocarditis, esophageal rupture, GERD, cholecystitis, pancreatitis, musculoskeletal, as well as other pathologies. ER treatment provided: See below Diagnostics interpreted by me include EKG and cardiac monitoring as listed below: -Cardiac Monitoring: An order was placed for continuous cardiac monitoring. The monitor shows a rate of 140 with A-fib rhythm. -ECG: A-fib RVR rate of 147 Left axis No PVCs QTc 497 -Laboratory studies:Interpreted by me as stated above in MDM and shown below. Imaging studies: Xrays: As interpreted by me: Portable AP upright 1 view of the chest shows no focal infiltrate CTs show: none Procedures:none Critical Care: I have personally spent 32 minutes of critical care time in the direct management of this patient. This includes bedside care, interpretation of diagnostic studies, and testing, discussion with consultants, patient, and family members, and other required patient management activities. This 32 minutes is in excess of all separately billable procedures. Past Med/Surg History Medical History (Updated 09/19/23 @ 08:10 by Vinny Esposito DO) Aortic root dilatation Mildly dilated aortic root and ascending aorta dilation per 2018 stress echo Osteoarthritis of knees, bilateral Basal cell carcinoma - upcoming MOHS procedure scheduled 05/20/23 ([facility]) - removing from left ear- per patient- Dr Thacker aware and okay with patient proceeding with Mohs procedure prior to TKAs Hearing loss No hearing aids HTN (hypertension) Dyslipidemia Lung nodules Under surveillance- most recent CT scan 12/2022- multiple tiny pulmonary nodules are unchanged- no additional follow up is required Lumbar spinal stenosis H/O prostate cancer s/p prostatectomy (diagnosed 2005)- no chemo or XRT Surgical History History of fusion of cervical spine History of tooth extraction Hx of umbilical hernia repair History of colonoscopy History of prostate surgery History of appendectomy Family History Father Colorectal cancer Prostate cancer Mother Pancreatitis Denies family history of Ovarian cancer Diabetes Myocardial infarction Breast cancer Lung cancer Stroke Social History (Updated 08/25/23 @ 10:01 by Lidia Suh LPN) Smoking Status: Former smoker Second Hand Exposure: No; Do You Dip or Chew Tobacco: No; Hx Alcohol Use: No Hx Substance Use: No Preferred Language: Spanish Communication Ability: Effective Visual Impairment: No Limitations Hearing Ability: Hard of Hearing Duster Tender Required: No Beliefs That Will Affect Care: None marital status: Current Living Situation: Spouse current occupational status: employed How many Children do You have: 3 Feels Safe at Home: Yes Childhood Exposure to Second-Hand Smoke: No Diet: regular caffeine: Yes Dental Care, Regularly: No Physical Activity Frequency: Daily Seatbelt Use: always Sunscreen Use: No Assistive Devices: Cane and Glasses Allergies Allergies Allergy/AdvReac Type Severity Reaction Status Date / Time codeine Allergy Severe Rash Verified 08/25/23 09:54 oxycodone [From Percocet] Allergy Severe Rash Verified 08/25/23 09:54 Home Meds Home Medications Medication Instructions Recorded Confirmed acetaminophen 500 mg tablet 500 mg PO DAILY PRN Pain 03/03/19 08/25/23 (Tylenol Extra Strength) acyclovir 5 % topical ointment 1 appln topical ONCE PRN Rash 03/03/19 08/25/23 (Zovirax) ascorbic acid (vitamin C) 1,000 mg 2.5 gm PO TID 03/03/19 08/25/23 tablet biotin 10,000 mcg capsule 10,000 mcg PO PM 03/03/19 08/25/23 glucosamine 750 gr-[id number]-hyz 1 tab PO TID 03/03/19 08/25/23 no.7 644 mg-vit V-[id number]-[id number] tablet (Glucosamine-Chondr Cmplx (boswellia)) multivitamin (Daily Multi-Vitamin 1 tab PO QAM 03/03/19 08/25/23 tablet) omega-3 acid ethyl esters 1 gram 1 cap PO TID 03/03/19 08/25/23 capsule cetirizine 10 mg tablet (Zyrtec) 10 mg PO QAM 03/10/19 08/25/23 cholecalciferol (vitamin D3) 25 25 mcg PO PM 02/19/22 08/25/23 mcg (1,000 unit) tablet (Vitamin D3) Previous Rx's Medication Instructions Recorded valacyclovir 500 mg tablet 500 mg PO HS #90 tabs 10/22/22 (Valtrex) simvastatin 10 mg tablet (Zocor) 10 mg PO HS #90 tabs 02/17/23 cyclobenzaprine 5 mg tablet 5 mg PO DAILY muscle spasm #90 tabs 05/04/23 gabapentin 300 mg capsule 300 mg PO DAILY #90 caps 08/25/23 gabapentin 300 mg capsule 300 mg PO HS #30 caps 08/25/23 Results & Data (ED) Vital Signs Vital Signs - 24 hr 09/19/23 06:21 09/19/23 06:26 09/19/23 06:26 Temperature 36.5 C Temperature Source Temporal Artery Scan Pulse Rate 132 H Pulse Rate [Apical] Pulse Rate from SpO2 Sensor Pulse Rhythm Pulse Rhythm [Apical] Pulse Strength [Apical] Respiratory Rate 20 Respiratory Effort / Characteristics Non-Labored Spontaneous Non-Labored Spontaneous Respiratory Depth Normal Normal Respiratory Pattern Regular Regular Blood Pressure 137/87 Blood Pressure [Right Arm] Blood Pressure Mean 103 Blood Pressure Mean [Right Arm] Blood Pressure Position Sitting Blood Pressure Position [Right Arm] Pulse Oximetry 95 96 Oxygen Delivery Method Room Air Room Air Sepsis Recent Fever Within 48 Hours No Sepsis New/Unexplained Change in Mental Status N/A Sepsis Action Taken by Nursing No Action Required 09/19/23 06:26 09/19/23 06:26 09/19/23 06:30 Temperature Temperature Source Pulse Rate 146 H 141 H Pulse Rate [Apical] 146 H Pulse Rate from SpO2 Sensor Pulse Rhythm Regular Pulse Rhythm [Apical] Regular Pulse Strength [Apical] Normal Respiratory Rate 18 18 Respiratory Effort / Characteristics Non-Labored Spontaneous Respiratory Depth Normal Respiratory Pattern Regular Blood Pressure Blood Pressure [Right Arm] 112/94 Blood Pressure Mean Blood Pressure Mean [Right Arm] 100 Blood Pressure Position Blood Pressure Position [Right Arm] Lying Pulse Oximetry 96 96 Oxygen Delivery Method Room Air Room Air Sepsis Recent Fever Within 48 Hours Sepsis New/Unexplained Change in Mental Status Sepsis Action Taken by Nursing 09/19/23 06:30 09/19/23 06:30 09/19/23 06:38 Temperature Temperature Source Pulse Rate 137 H 152 H Pulse Rate [Apical] Pulse Rate from SpO2 Sensor 140 H 126 H Pulse Rhythm Pulse Rhythm [Apical] Pulse Strength [Apical] Respiratory Rate 22 15 Respiratory Effort / Characteristics Respiratory Depth Respiratory Pattern Blood Pressure 124/98 Blood Pressure [Right Arm] Blood Pressure Mean 107 Blood Pressure Mean [Right Arm] Blood Pressure Position Blood Pressure Position [Right Arm] Pulse Oximetry 97 93 Oxygen Delivery Method Sepsis Recent Fever Within 48 Hours Sepsis New/Unexplained Change in Mental Status Sepsis Action Taken by Nursing 09/19/23 06:38 09/19/23 06:40 09/19/23 06:46 Temperature Temperature Source Pulse Rate 151 H 134 H Pulse Rate [Apical] Pulse Rate from SpO2 Sensor 136 H 134 H Pulse Rhythm Pulse Rhythm [Apical] Pulse Strength [Apical] Respiratory Rate 24 24 Respiratory Effort / Characteristics Respiratory Depth Respiratory Pattern Blood Pressure 112/94 Blood Pressure [Right Arm] Blood Pressure Mean 105 Blood Pressure Mean [Right Arm] Blood Pressure Position Blood Pressure Position [Right Arm] Pulse Oximetry 95 94 Oxygen Delivery Method Sepsis Recent Fever Within 48 Hours Sepsis New/Unexplained Change in Mental Status Sepsis Action Taken by Nursing 09/19/23 06:46 09/19/23 06:46 09/19/23 06:50 Temperature Temperature Source Pulse Rate 149 H Pulse Rate [Apical] Pulse Rate from SpO2 Sensor 137 H Pulse Rhythm Pulse Rhythm [Apical] Pulse Strength [Apical] Respiratory Rate 21 Respiratory Effort / Characteristics Respiratory Depth Respiratory Pattern Blood Pressure 111/77 111/77 Blood Pressure [Right Arm] Blood Pressure Mean 92 92 Blood Pressure Mean [Right Arm] Blood Pressure Position Blood Pressure Position [Right Arm] Pulse Oximetry 95 Oxygen Delivery Method Sepsis Recent Fever Within 48 Hours Sepsis New/Unexplained Change in Mental Status Sepsis Action Taken by Nursing 09/19/23 07:00 09/19/23 07:01 09/19/23 07:01 Temperature Temperature Source Pulse Rate 113 H 132 H Pulse Rate [Apical] Pulse Rate from SpO2 Sensor 92 H 102 H Pulse Rhythm Pulse Rhythm [Apical] Pulse Strength [Apical] Respiratory Rate 16 23 Respiratory Effort / Characteristics Respiratory Depth Respiratory Pattern Blood Pressure 115/75 Blood Pressure [Right Arm] Blood Pressure Mean 87 Blood Pressure Mean [Right Arm] Blood Pressure Position Blood Pressure Position [Right Arm] Pulse Oximetry 95 93 Oxygen Delivery Method Sepsis Recent Fever Within 48 Hours Sepsis New/Unexplained Change in Mental Status Sepsis Action Taken by Nursing 09/19/23 07:10 09/19/23 07:16 09/19/23 07:16 Temperature Temperature Source Pulse Rate 102 H 116 H Pulse Rate [Apical] Pulse Rate from SpO2 Sensor 100 H 101 H Pulse Rhythm Pulse Rhythm [Apical] Pulse Strength [Apical] Respiratory Rate 22 20 Respiratory Effort / Characteristics Respiratory Depth Respiratory Pattern Blood Pressure 99/83 L Blood Pressure [Right Arm] Blood Pressure Mean 92 Blood Pressure Mean [Right Arm] Blood Pressure Position Blood Pressure Position [Right Arm] Pulse Oximetry 92 92 Oxygen Delivery Method Sepsis Recent Fever Within 48 Hours Sepsis New/Unexplained Change in Mental Status Sepsis Action Taken by Nursing 09/19/23 07:20 09/19/23 07:30 09/19/23 07:30 Temperature Temperature Source Pulse Rate 113 H 106 H Pulse Rate [Apical] Pulse Rate from SpO2 Sensor 98 H 143 H Pulse Rhythm Pulse Rhythm [Apical] Pulse Strength [Apical] Respiratory Rate 19 30 H Respiratory Effort / Characteristics Respiratory Depth Respiratory Pattern Blood Pressure 123/81 Blood Pressure [Right Arm] Blood Pressure Mean 102 Blood Pressure Mean [Right Arm] Blood Pressure Position Blood Pressure Position [Right Arm] Pulse Oximetry 94 92 Oxygen Delivery Method Sepsis Recent Fever Within 48 Hours Sepsis New/Unexplained Change in Mental Status Sepsis Action Taken by Nursing 09/19/23 07:40 09/19/23 07:46 09/19/23 07:46 Temperature Temperature Source Pulse Rate 92 H 101 H Pulse Rate [Apical] Pulse Rate from SpO2 Sensor 98 H 96 H Pulse Rhythm Pulse Rhythm [Apical] Pulse Strength [Apical] Respiratory Rate 19 21 Respiratory Effort / Characteristics Respiratory Depth Respiratory Pattern Blood Pressure 105/78 Blood Pressure [Right Arm] Blood Pressure Mean 85 Blood Pressure Mean [Right Arm] Blood Pressure Position Blood Pressure Position [Right Arm] Pulse Oximetry 96 94 Oxygen Delivery Method Sepsis Recent Fever Within 48 Hours Sepsis New/Unexplained Change in Mental Status Sepsis Action Taken by Nursing Laboratory Data 09/19/23 06:32 09/19/23 06:32 Lab Results 09/19/23 Range/Units 06:32 WBC 6.29 (4.8-10.8) K/ul RBC 4.91 (4.70-6.10) M/uL Hgb 14.1 (14.0-18.0) g/dl Hct 43.4 (42.0-52.0) % MCV 88.4 (80.0-100.0) fL MCH 28.7 (25.0-34.0) pg MCHC 32.5 (32.0-36.0) g/dL RDW Std Deviation 53.5 H (36.4-46.3) fL RDW Coeff of Alondra 16.4 H (11.5-14.5) % Plt Count 253 (130-400) K/uL MPV 10.2 (9.4-12.4) fL Immature Gran % (Auto) 0.2 % Neut % (Auto) 48.4 % Lymph % (Auto) 35.6 % [place] % (Auto) 10.3 % Eos % (Auto) 4.9 % Baso % (Auto) 0.6 % Neut # (Auto) 3.04 (1.40-6.50) K/uL Lymph # (Auto) 2.24 (1.20-3.40) K/uL [place] # (Auto) 0.65 H (0.11-0.59) K/uL Eos # (Auto) 0.31 (0.00-0.50) K/uL Baso # (Auto) 0.04 (0.00-0.20) K/uL Immature Gran # (Auto) 0.01 (0.01-0.20) K/uL Sodium 142 (136-145) mmol/L Potassium 3.7 (3.5-5.1) mmol/L Chloride 111 H (98-107) mmol/L Carbon Dioxide 24 (21-32) mmol/L Anion Gap 7 (3-11) BUN 21 (6-23) mg/dl Creatinine 1.29 (0.6-1.4) mg/dl Est Cr Clr Drug Dosing 46.3 ml/min Est GFR ( Amer) 62.4 ml/min Est GFR (Non-Af Amer) 53.9 ml/min BUN/Creatinine Ratio 16.3 (10-20) Glucose 130 H (70-99(Fasting)) mg/dl Calcium 10.3 (8.6-10.3) mg/dl Total Bilirubin 0.6 (0.2-1.0) mg/dl AST 29 (13-39) U/L ALT 31 (7-52) U/L Alkaline Phosphatase 77 (34-104) U/L Troponin I High Sens 33.9 H (0-20) pg/ml Total Protein 7.1 (6.0-8.3) gm/dl Albumin 4.1 (3.4-5.0) gm/dl Globulin 3.0 (2.5-4.0) gm/dl Albumin/Globulin Ratio 1.4 (0.9-2) Lipase 246 H (11-82) U/L Administered Medications Diltiazem HCl 125 mg/ Dextrose 125 mls @ 5 mls/hr IV .Q24H CATHERINE; Protocol Stop: 10/19/23 06:44 Last Admin: 09/19/23 07:02 Dose: 5 mg/hr, 5 mls/hr Documented By: BASILIO Co-signed By: DAY Discontinued Medications Diltiazem HCl (Diltiazem Hcl 5 Mg/Ml 5 Ml Vial) 10 mg IV NOW STA Stop: 09/19/23 06:38 Last Admin: 09/19/23 06:47 Dose: 10 mg Documented By: LORRAINE Co-signed By: DINO Miscellaneous (Stat Iv Infusion Titration Per Protocol) 1 each N/A NOW STA Stop: 09/19/23 06:38 Last Admin: 09/19/23 07:03 Dose: Not Given Documented By: BASILIO Imaging Data Radiologist's Impression: Chest X-Ray 09/19/23 06:26 XR chest 1V portable HISTORY: 77 years-old Male Chest pain, nonspecific COMPARISON: 04/27/2023 TECHNIQUE: AP view of the chest FINDINGS: Cardiac silhouette is again enlarged. Pulmonary vascular congestion. Trace pleural effusions with mild bibasilar opacities. Degenerative changes of the shoulders and spine. Cervical spinal fusion hardware. IMPRESSION: 1. Cardiomegaly with pulmonary vascular congestion. 2. Trace pleural effusions with bibasilar opacities suggestive of atelectasis. ACT 112: Negative or not required by law. The above report was generated using voice recognition software. It may contain grammatical, syntax or spelling errors. Electronically signed by: Gianni Dyer M.D. 09/19/2023 7:49 AM Discharge Plan Visit Data Chief Complaint: Respiratory Problems Stated Complaint: HARD TO BREATH ED Provider: Vinny Esposito Discharge Problem: Atrial fibrillation with rapid ventricular response, Elevated troponin, Shortness of breath Forms Stand Alone Forms: My [facility] Prescriptions Prescriptions: No Action valacyclovir [Valtrex] 500 mg tablet 500 mg PO HS Qty: 90 3RF Rx Instructions: TAKE 1 TABLET BY MOUTH DAILY simvastatin [Zocor] 10 mg tablet 10 mg PO HS Qty: 90 3RF cyclobenzaprine 5 mg tablet 5 mg PO DAILY Qty: 90 1RF Rx Instructions: TAKE ONE TABLET BY MOUTH ONCE DAILY. acyclovir [Zovirax] 5 % ointment 1 appln topical ONCE PRN (Reason: Rash) biotin 10,000 mcg capsule 10,000 mcg PO PM Glucosamine-Chondr (boswellia) 199-343-56-1-3 mg tablet 1 tab PO TID multivitamin [Daily Multi-Vitamin] tablet 1 tab PO QAM omega-3 acid ethyl esters 1 gram capsule 1 cap PO TID acetaminophen [Tylenol Extra Strength] 500 mg tablet 500 mg PO DAILY PRN (Reason: Pain) ascorbic acid (vitamin C) 1,000 mg tablet 2.5 gm PO TID cetirizine [Zyrtec] 10 mg tablet 10 mg PO QAM gabapentin 300 mg capsule 300 mg PO DAILY Qty: 90 3RF gabapentin 300 mg capsule 300 mg PO HS Qty: 30 0RF cholecalciferol (vitamin D3) [Vitamin D3] 25 mcg (1,000 unit) Tablet 25 mcg PO PM Referrals Referrals: Sohan Woo DO [Primary Care Provider] -
[2023-09-19] MEDS: dilTIAZem HCl 5 MG/ML 5 ML VIAL IV STA (06:47)
[2023-09-19 06:48] LABS: Basophils # (auto) 0.04 K/uL (0.00-0.20); Basophils % (auto) 0.6 %; Eosinophils # (auto) 0.31 K/uL (0.00-0.50); Eosinophils % (auto) 4.9 %; Hematocrit (blood only) 43.4 % (42.0-52.0); Hemoglobin 14.1 g/dl (14.0-18.0); Immature Granulocytes # (auto) 0.01 K/uL (0.01-0.20); Immature Granulocytes % (auto) 0.2 %; Lymphocytes # (auto) 2.24 K/uL (1.20-3.40); Lymphocytes % (auto) 35.6 %; Mean Corpuscular Hemoglobin 28.7 pg (25.0-34.0); Mean Corpuscular Hgb Conc 32.5 g/dL (32.0-36.0); Mean Corpuscular Volume 88.4 fL (80.0-100.0); Mean Platelet Volume 10.2 fL (9.4-12.4); Monocytes # (auto) 0.65 K/uL (0.11-0.59); Monocytes % (auto) 10.3 %; Neutrophils # (auto) 3.04 K/uL (1.40-6.50); Neutrophils % (auto) 48.4 %; Platelet Count 253 K/uL (130-400); RDW Coefficient of Variation 16.4 % (11.5-14.5); RDW Standard Deviation 53.5 fL (36.4-46.3); Red Blood Count 4.91 M/uL (4.70-6.10); White Blood Count 6.29 K/ul (4.8-10.8)
[2023-09-19] MEDS: dilTIAZem HCL 125 MG in DEXTROSE 5% 100 ML IV SCH (07:02)
[2023-09-19] MEDS: STAT IV Infusion **Titration per Protocol STA (07:03)
[2023-09-19 07:06] LABS: Albumin Globulin Ratio 1.4 (0.9-2); Albumin Level 4.1 gm/dl (3.4-5.0); BUN Creatinine Ratio 16.3 (10-20); Bilirubin,Total 0.6 mg/dl (0.2-1.0); Calcium 10.3 mg/dl (8.6-10.3); Creatinine Clr Calc Pharmacy 46.3 ml/min; Est GFR (African American) 62.4 ml/min; Est GFR (Non-African American) 53.9 ml/min; Potassium 3.7 mmol/L (3.5-5.1); Total Protein 7.1 gm/dl (6.0-8.3)
[2023-09-19 07:12] LABS: Troponin I High Sensitivity 33.9 pg/ml (0-20)
--- NOTE | 2023-09-19 07:51 | XRay Report ---
XR chest 1V portable HISTORY: 77 years-old Male Chest pain, nonspecific COMPARISON: 04/27/2023 TECHNIQUE: AP view of the chest FINDINGS: Cardiac silhouette is again enlarged. Pulmonary vascular congestion. Trace pleural effusions with mil d bibasilar opacities. Degenerative changes of the shoulders and spine. Cervical spinal fusion hardwa re. IMPRESSION: 1. Cardiomegaly with pulmonary vascular congestion. 2. Trace pleural effusions with bibasilar opacities suggestive of atelectasis. ACT 112: Negative or not required by law. The above report was generated using voice recognition software. It may contain grammatical, syntax o r spelling errors. Electronically signed by: Gianni Dyer M.D. 09/19/2023 7:49 AM
[2023-09-19] MEDS ORDERED: NITROGLYCERIN SL 0.4 MG/TAB TAB SL PRN (09:21)
[2023-09-19] MEDS ORDERED: ACETAMINOPHEN 325 MG TAB PO PRN (09:21)
[2023-09-19] MEDS ORDERED: POLYETHYLENE (MIRALAX) 17 GM PACK PO PRN (09:21)
[2023-09-19] MEDS ORDERED: ONDANSETRON INJ 2 MG/ML 2 ML VIAL IV PRN (09:21)
[2023-09-19] MEDS ORDERED: MAGNESIUM HYDROXIDE SUSP 30 ML UDC PO PRN (09:21)
[2023-09-19] MEDS ORDERED: ALUMINUM/MAGNESIUM SUSP 30 ML UDC PO PRN (09:21)
--- NOTE | 2023-09-19 09:38 | History & Physical Report ---
Date of Service September 19, 2023 Assessment & Plan (1) Shortness of breath: (2) Atrial fibrillation with rapid ventricular response: (3) HTN (hypertension): (4) Dyslipidemia: Plan This is a 77-year-old male who was admitted to our service due to new diagnosis of atrial fibrillation with RVR, which presented with symptoms of shortness of breath that are worse with exertion, chest tightness, and bilateral lower extremity weakness. Atrial Fibrillation with RVR (New diagnosis) -EKG done in ED showing A-fib with RVR -Patient symptomatic (shortness of breath/dyspnea on exertion, chest tightness) -Admit to telemetry -Will order TTE for further evaluation and assessment of valve function -Ordered TSH to r/o thyroid disease as a cause for new a-fib -Patient currently on diltiazem drip, but will consider transition to metoprolol to tartrate 12.5 mg p.o. 3 times daily -Discussed likely need for outpatient follow up with cardiology after discharge Elevated troponin -Initial troponin ordered in ED elevated at 33.9 which decreased to 31.7 two hours later -Patient without chest pain, nausea, vomiting, or any other ischemic symptoms -Likely that this elevation is related to current arrhythmia -Will order repeat troponin for later today to ensure downtrend continues HTN -Being followed for this as an outpatient with PCP, and as his blood pressure has been within goal range his medication was discontinued -Continue to monitor blood pressure while on beta-meseret HLD -Continue simvastatin 10 mg Dispo: PCU/telemetry Diet: Regular VTE ppx: Eliquis Code Status: Full code Admission and Anticipated Discharge Date Admission Date: September 19, 2023 History of Present Illness Chief Complaint: Shortness of breath Primary Care Provider: Sohan Woo DO Mr. Del Rosario is a 77-year-old male with past medical history relevant for hypertension that is well-controlled (no medications for this), hyperlipidemia, mild aortic root dilation as diagnosed by an echocardiogram from 2018, lung nodules noted on chest CT, bilateral knee osteoarthritis (status post bilateral knee replacement in 2022) and obesity who presented to the emergency room due to 2 to 3 days of shortness of breath that is worse with exertion, bilateral lower extremity weakness, and intermittent chest tightness. Patient denies having experienced any chest pain, palpitations, tachycardia, near syncopal episodes, syncopal episodes, vision changes, cough, fevers, chills, or any other systemic symptoms. 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 Prior to current episode, patient is independent in his activities of daily living and is currently employed. Patient is a former smoker, denies alcohol use and denies substance use. ED Course: Patient was placed on gas prover which showed a heart rate of 1 40 bpm with irregular rhythm consistent with atrial fibrillation, EKG showing A- fib with RVR showing a rate of 147, diltiazem bolus given and patient placed on diltiazem drip Labs/imaging: troponins mildly elevated at 33.9 and repeat 2 hours later showing level of 31.7, labs without leukocytosis or any other mahesh abnormalities, renal markers within reference range, normal electrolytes save for mildly elevated chloride, chest x-ray without evidence of an acute process, Allergies Allergy/AdvReac Type Severity Reaction Status Date / Time codeine Allergy Severe Rash Verified 08/25/23 09:54 oxycodone [From Percocet] Allergy Severe Rash Verified 08/25/23 09:54 Home Medications Medication Instructions Recorded Confirmed Type acetaminophen 500 mg tablet 500 mg PO DAILY PRN Pain 03/03/19 09/19/23 History (Tylenol Extra Strength) acyclovir 5 % topical ointment 1 appln topical ONCE PRN Rash 03/03/19 09/19/23 History (Zovirax) ascorbic acid (vitamin C) 1,000 mg 2.5 gm PO TID 03/03/19 09/19/23 History tablet biotin 10,000 mcg capsule 10,000 mcg PO PM 03/03/19 09/19/23 History glucosamine 750 db-pznnwaowq-xqn 1 tab PO TID 03/03/19 09/19/23 History no.7 644 mg-vit Q-ptporu-qtrxk tablet (Glucosamine-Chondr Cmplx (boswellia)) multivitamin (Daily Multi-Vitamin 1 tab PO QAM 03/03/19 09/19/23 History tablet) omega-3 acid ethyl esters 1 gram 1 cap PO TID 03/03/19 09/19/23 History capsule cetirizine 10 mg tablet (Zyrtec) 10 mg PO QAM 03/10/19 09/19/23 History cholecalciferol (vitamin D3) 25 25 mcg PO PM 02/19/22 09/19/23 History mcg (1,000 unit) tablet (Vitamin D3) valacyclovir 500 mg tablet 500 mg PO HS #90 tabs 10/22/22 09/19/23 Rx (Valtrex) simvastatin 10 mg tablet (Zocor) 10 mg PO HS #90 tabs 02/17/23 09/19/23 Rx cyclobenzaprine 5 mg tablet 5 mg PO DAILY muscle spasm #90 tabs 05/04/23 09/19/23 Rx gabapentin 300 mg capsule 300 mg PO HS #30 caps 08/25/23 09/19/23 Rx Past Med/Surg History Medical History (Updated 09/19/23 @ 08:10 by Vinny Esposito DO) Aortic root dilatation Mildly dilated aortic root and ascending aorta dilation per 2018 stress echo Osteoarthritis of knees, bilateral Basal cell carcinoma - upcoming MOHS procedure scheduled 05/20/23 ([facility]) - removing from left ear- per patient- Dr Thacker aware and okay with patient proceeding with Mohs procedure prior to TKAs Hearing loss No hearing aids HTN (hypertension) Dyslipidemia Lung nodules Under surveillance- most recent CT scan 12/2022- multiple tiny pulmonary nodules are unchanged- no additional follow up is required Lumbar spinal stenosis H/O prostate cancer s/p prostatectomy (diagnosed 2005)- no chemo or XRT Surgical History History of fusion of cervical spine History of tooth extraction Hx of umbilical hernia repair History of colonoscopy History of prostate surgery History of appendectomy Family History Father Colorectal cancer Prostate cancer Mother Pancreatitis Denies family history of Ovarian cancer Diabetes Myocardial infarction Breast cancer Lung cancer Stroke Social History (Updated 08/25/23 @ 10:01 by Lidia Suh LPN) Smoking Status: Former smoker Tobacco Type: Cigarettes Second Hand Exposure: No; Do You Dip or Chew Tobacco: No; Hx Alcohol Use: No Hx Substance Use: No Preferred Language: Kyrgyz Communication Ability: Effective Visual Impairment: No Limitations Hearing Ability: Hard of Hearing Social Group Worker Required: No Beliefs That Will Affect Care: None marital status: Current Living Situation: Spouse current occupational status: employed How many Children do You have: 3 Other Information That Helps Us Care for You: No Feels Safe at Home: Yes Safety Concerns: Feels Safe At This Time Childhood Exposure to Second-Hand Smoke: No Diet: regular caffeine: Yes Dental Care, Regularly: No Physical Activity Frequency: Daily Seatbelt Use: always Sunscreen Use: No Assistive Devices: Cane Review of Systems Review of Systems: As per HPI Physical Exam Physical Exam: GENERAL: Awake alert and oriented in all spheres, afebrile, no acute distress HEAD: Atraumatic and normocephalic EYES: EOM intact,MYRANDA THROAT: Normal to visual inspection CHEST: No visible lesions, symmetric chest expansions with respirations CARDIO: Slightly tachycardic with irregular rhythm PULMONARY: Clear to auscultation bilaterally, no wheezing or crackles heard GI: Soft, nondistended, nontender EXTREMITIES: No swelling in bilateral lower extremities, no calf tenderness Results & Data Results & Data Vital Signs (Past 12 Hours) Vital Signs Temp Pulse Pulse Resp BP BP Pulse Ox 09/19/23 09:30 109 H 20 123/85 93 09/19/23 09:29 09/19/23 09:00 108 H 23 95 09/19/23 09:00 110/75 09/19/23 09:00 106 H 19 110/75 94 09/19/23 08:45 128/93 09/19/23 08:45 126 H 23 97 09/19/23 08:42 132 H 27 H 09/19/23 08:42 116/86 09/19/23 08:16 103 H 19 96 09/19/23 08:16 123/80 09/19/23 08:15 96 H 20 97 09/19/23 08:10 103 H 16 94 09/19/23 08:00 116/76 09/19/23 08:00 108 H 24 94 09/19/23 07:50 105 H 22 96 09/19/23 07:46 105/78 09/19/23 07:46 101 H 21 94 09/19/23 07:40 92 H 19 96 09/19/23 07:30 106 H 30 H 92 09/19/23 07:30 123/81 09/19/23 07:20 113 H 19 94 09/19/23 07:16 99/83 L 09/19/23 07:16 116 H 20 92 09/19/23 07:10 102 H 22 92 09/19/23 07:01 115/75 09/19/23 07:01 132 H 23 93 09/19/23 07:00 113 H 16 95 09/19/23 06:50 149 H 21 95 09/19/23 06:46 111/77 09/19/23 06:46 111/77 09/19/23 06:46 134 H 24 94 09/19/23 06:40 151 H 24 95 09/19/23 06:38 112/94 09/19/23 06:38 152 H 15 93 09/19/23 06:30 124/98 09/19/23 06:30 137 H 22 97 09/19/23 06:30 141 H 09/19/23 06:26 146 H 18 96 09/19/23 06:26 146 H 18 112/94 96 09/19/23 06:26 96 09/19/23 06:26 09/19/23 06:21 36.5 C 132 H 20 137/87 95 Pulse Ox O2 Del Method O2 Del Method 09/19/23 09:30 Room Air 09/19/23 09:29 95 Room Air 09/19/23 09:00 09/19/23 09:00 09/19/23 09:00 Room Air 09/19/23 08:45 09/19/23 08:45 09/19/23 08:42 09/19/23 08:42 09/19/23 08:16 09/19/23 08:16 09/19/23 08:15 09/19/23 08:10 09/19/23 08:00 09/19/23 08:00 09/19/23 07:50 09/19/23 07:46 09/19/23 07:46 09/19/23 07:40 09/19/23 07:30 09/19/23 07:30 09/19/23 07:20 09/19/23 07:16 09/19/23 07:16 09/19/23 07:10 09/19/23 07:01 09/19/23 07:01 09/19/23 07:00 09/19/23 06:50 09/19/23 06:46 09/19/23 06:46 09/19/23 06:46 09/19/23 06:40 09/19/23 06:38 09/19/23 06:38 09/19/23 06:30 09/19/23 06:30 09/19/23 06:30 09/19/23 06:26 Room Air 09/19/23 06:26 Room Air 09/19/23 06:26 Room Air 09/19/23 06:26 Room Air 09/19/23 06:21 Code Status & VTE Plan VTE Prophylaxis Plan VTE Prophylaxis will be ordered: Yes Supervising Physician Co-Signing Physician Notes I personally examined the patient and verified all [place] points of history and exam, discussed case, and agree with decision making with Dr Chanel feeling ok just still a little sob. vitals noted nad heent nc at mmm lungs very questionable rales base R but overall clear no rrw good effort converted to NSR w frequent ectopy before i saw him echo, EKG, CXR, labs reviewed. new afib - rate controlled (actually converted) - metoprolol, eliquis. (w/u - TSH sl elevated recheck ~4-6wks but thyroid disease not culprit, echo more likely "effect than cause", outpt sleep study) dilated cardiomyopathy - with global hypokinesis, nominally elevated troponin, normal stress echo ~6yrs ago - mostly suspect he was in RVR far longer than he realized and this is a rate related cardiomyopathy - control rate; if BP allows then start afterload reduction, anticipate improvement. consult cardiology for eval/assistance and consideration for LHC as well mild pulmonary edema - mild acute (?acute on chronic) HFrEF - rate control, lasix x1 DVT proph - anticoagulated for afib otherwise as above Resident Activity Tracking Resident Involvement: Resident Care Provided Care Provided: Adult Hospital Medicine
[2023-09-19] MEDS: CYCLOBENZAPRINE HCL 5 MG TAB PO SCH (09:39)
[2023-09-19] MEDS: CETIRIZINE HCL 10 MG TABLET PO SCH (09:40)
[2023-09-19] MEDS: METOPROLOL TARTRATE 25 MG TAB PO SCH (09:49)
[2023-09-19] MEDS: GABAPENTIN 300 MG CAP PO SCH ×2 (10:54→20:01)
--- NOTE | 2023-09-19 12:18 | Electrocardiogram Report ---
Test Reason : Blood Pressure : / mmHG Vent. Rate : 147 BPM Atrial Rate : 000 BPM P-R Int : 000 ms QRS Dur : 118 ms QT Int : 318 ms P-R-T Axes : 000 -29 081 degrees QTc Int : 497 ms Atrial fibrillation with rapid ventricular response Incomplete right bundle branch block Abnormal ECG When compared with ECG of 27-APR-2023 13:23, Atrial fibrillation has replaced Sinus rhythm Vent. rate has increased BY 77 BPM Incomplete right bundle branch block has replaced Right bundle branch block Confirmed by Jase Tejeda ([id number]) on 09/19/2023 12:17:40 PM Referred By: Confirmed By:Jase Tejeda
--- NOTE | 2023-09-19 13:20 | XCELERA ---
[id number] [id number]
--- OUTSIDE RECORDS SUMMARY | 2023-09-19 15:51 | External Medical Summary | Summary of Care ---
Author Name Unknown Organization [facility] Address [address] [facility] [place] [address] Phone [phone] Care Team Providers Care Reliability Technicians Name Role Phone Lawrence Wilson MD Primary Care Provider [phone] Reason for Visit * Reason Onset Date Comments Procedure 08/30/2023 COLON/EGD Encounter Details Date Type Department Care Team (Late st Contact Info) Description 08/30/2023 Telephone Access Center, [address] *DO NOT REMOVE THIS DEPARTMENT* [place] [address] Request, External Referral Procedure (COLON/EGD) Allergies Active Allergy Reactions Criticality Noted Date Comments Codeine Rash 12/31/2021 Morphine And Related Rash Medium 11/15/2012 Codeine Oxycodone-Acetaminop hen High 01/17/2016 Rash, nausea Pollen Extract Other (Please comment) 12/31/2021 [place]. congestion documented as of this encounter (statuses as of 08/31/2023) Medications Medication Sig Dispensed Refills Start Date End Date Status BOSWELLIA-GLUCOSAMINE- VIT D PO TABS 1 tab 3 x daily 0 Active GLUCOSAMINE CHOND COMPLEX/MSM PO TABS one pill each day 0 Active CYCLOBENZAPRINE HCL 5 MG PO TABS one pill twice a day 0 Active VALACYCLOVIR HCL 500 MG PO TABS one pill each day 0 Active SIMVASTATIN 10 MG PO TABS one pill each day 0 Active GABAPENTIN 300 MG PO CAPS one pill each day at bedtime 0 Active VITAMIN C 100 MG PO TABS one pill each day 0 Active MULTIPLE VITAMIN PO TABS one pill each day 0 Active OMEGA 3 1000 MG PO CAPS one pill each day 0 Active BIOTIN 10 MG PO CAPS one pill each day 0 Active ZYRTEC ALLERGY 10 MG PO TABS one pill each day 0 Active Cholecalciferol (VITAMIN D3) 5000 UNITS Tablet Take 5,000 Units by mouth daily. 0 Active Lisinopril 2.5 MG Oral Tablet (Prinivil) 0 11/22/2021 Active Acetaminophen 500 MG Oral Tablet (Tylenol Extra Strength) Take by mouth 500 mg every 6 hours as needed . 0 Active documented as of this encounter (statuses as of 08/31/2023) Active Problems No known active problems documented as of this encounter (statuses as of 08/31/2023) Social History Tobacco Use Types Packs/Day Years Used Date Smoking Tobacco: Former Cigarettes Q uit: 02/05/1989 Smokeless Tobacco: Never Alcohol Use Standard Drinks/Week Comments No 0 (1 standard drink = 0.6 oz pur e alcohol) Sex and Gender Information Value Date Recorded Sex Assigned at Not on file Gender Identity Not on file Sexual Orientation Not on file Job Start Date Occupation Industry Not on file Not on file Not on file documented as of this encounter Miscellaneous Notes * Telephone Encounter - Zoya Haynes OSA - 08/30/2023 2:24 PM EDT Colonoscopy/EGD orders in [facility]. documented in this encounter Plan of Treatment Health Maintenance Due Date Last Done Comments Depression Screening 1957 Hepatitis C Screening 12/22/1965 DTaP,Tdap,and Td Vaccines (1 - Tdap) 12/22/1966 Zoster Vaccines (2 of 3) 07/14/2013 05/19/2013 COVID-19 Vaccine (5 - 2022- season) 2023 11/20/2021, 05/24/2021, 09/26/2020, Additional history exists Influenza Vaccine (FLU shot) (#1) 2023 05/24/2021, 05/18/2020, 03/10/2019, Additional history exists Colonoscopy Discontinued 11/19/2012, 11/19/2012 Colorectal Cancer Screening Discontinued Pneumococcal Vaccine: 65+ Years Completed 01/08/2017, 11/21/2013 Cologuard Discontinued Fecal Occult Blood Test Discontinued GARDASIL-HPV IMMUNIZATION SERIES Aged Out No longer eligible based on patient's age to complete this topic Hepatitis B Aged Out No longer eligi ble based on patient's age to complete this topic MENINGOCOCCAL (MENACTRA/MENVEO) Aged Out No longer eligible based on patient's age to complete this topic Sigmoidoscopy Discontinued documented as of this encounter Medical Devices Not on filedocumented as of this encounter Care Teams Reliability Technicians Relationship Specialty Start Date End Date Lawrence Wilson MD [address] [place] [address] PCP - General Internal Medicine 01/09/16 documented as of this encounter
--- OUTSIDE RECORDS SUMMARY | 2023-09-19 15:51 | External Medical Summary | Summary of Care ---
Author Name Unknown Organization [facility] Address [address] [facility] [place] [address] Phone [phone] Care Team Providers Care Cook Pressure Name Role Phone Lawrence Wilson MD Primary Care Provider [phone] Reason for Visit * Reason Onset Date Comments Procedure 08/30/2023 COLON/EGD Encounter Details Date Type Department Care Team (Late st Contact Info) Description 08/30/2023 Telephone Access Center, [address] *DO NOT REMOVE THIS DEPARTMENT* [place] [address] Request, External Referral Procedure (COLON/EGD) Allergies Active Allergy Reactions Criticality Noted Date Comments Codeine Rash 12/31/2021 Morphine And Related Rash Medium 11/15/2012 Codeine Oxycodone-Acetaminop hen High 01/17/2016 Rash, nausea Pollen Extract Other (Please comment) 12/31/2021 [place]. congestion documented as of this encounter (statuses as of 09/10/2023) Medications Medication Sig Dispensed Refills Start Date [...] as of this encounter (statuses as of 09/10/2023) Active Problems No known active problems documented as of this encounter (statuses as of 09/10/2023) Social History Tobacco Use Types Packs/Day Years [...] encounter Miscellaneous Notes * Telephone Encounter - Crystal Medley OSA - 09/10/2023 10:21 AM EDT Attempted to reach patient, LMOM/sent sent letter * Telephone Encounter - Zoya Haynes OSA - 08/30/2023 2:24 PM EDT Colonoscopy/EGD orders in [facility]. documented in this encounter Plan of Treatment Health Maintenance Due Date Last Done Comments Depression Screening 1957 Hepatitis C Screening 12/22/1965 DTaP,Tdap,and Td Vaccines (1 - Tdap) 12/22/1966 Zoster Vaccines (2 of 3) 07/14/2013 05/19/2013 COVID-19 Vaccine (5 - season) 2023 11/20/2021, 05/24/2021, 09/26/2020, Additional history exists Influenza Vaccine (FLU shot) (Season Ended) 2024 05/24/2021, 05/18/2020, 03/10/2019, Additional history exists Colonoscopy [...] filedocumented as of this encounter Care Teams Cook Pressure Relationship Specialty Start Date End Date Lawrence Wilson MD [address] [place] [address] PCP - General Internal Medicine 01/09/16 documented as of this encounter
--- OUTSIDE RECORDS SUMMARY | 2023-09-19 15:51 | External Medical Summary | Summary of Care ---
Author Name Unknown Organization [facility] Address [address] [facility] [place] [address] Phone [phone] Care Team Providers Care Ostrich Farmer Name Role Phone Lawrence Wilson MD Primary Care Provider [phone] Reason for Visit * Reason Onset Date Comments Referral 08/30/2023 Encounter Details Date Type Department Care Team (Late st Contact Info) Description 08/30/2023 Telephone Access Center, [address] *DO NOT REMOVE THIS DEPARTMENT* [place] [address] Request, External Referral Referral Allergies Active Allergy Reactions Criticality Noted Date Comments Codeine Rash 12/31/2021 Morphine And Related Rash Medium 11/15/2012 Codeine Oxycodone-Acetaminop hen High 01/17/2016 Rash, nausea Pollen Extract Other (Please comment) 12/31/2021 [place]. congestion documented as of this encounter (statuses as of 08/30/2023) Medications Medication Sig Dispensed Refills Start Date [...] as of this encounter (statuses as of 08/30/2023) Active Problems No known active problems documented as of this encounter (statuses as of 08/30/2023) Social History Tobacco Use Types Packs/Day Years [...] 08/30/2023 2:24 PM EDT Colonoscopy/EGD orders in [facility]. documented in this encounter Plan of [...] filedocumented as of this encounter Care Teams Ostrich Farmer Relationship Specialty Start Date End Date Lawrence Wilson MD [address] [place] [address] PCP - General Internal Medicine 01/09/16 documented as of this encounter
--- NOTE | 2023-09-19 16:28 | Billing Data ---
Date of Service September 19, 2023 Coding Level of Care Code 27048 INT INP/OBS CARE
[2023-09-19] MEDS: FUROSEMIDE INJ 20 MG/2 ML VIAL IV ONE (17:03)
[2023-09-19] MEDS: COUGH DROP (SUGAR FREE) LOZ 24 LOZ/1 BOX BUCCAL PRN (17:03)
[2023-09-19] MEDS: CHOLECALCIFEROL 25 MCG (1000 UNITS) TAB PO SCH (20:00)
[2023-09-19] MEDS: valACYclovir HCL 500 MG TABLET PO SCH (20:00)
[2023-09-19] MEDS: SIMVASTATIN 10 MG TAB PO SCH (20:00)
[2023-09-19] MEDS: APIXABAN 5 MG TABLET PO SCH (20:02)
[2023-09-20 06:34] LABS: Hematocrit (blood only) 39.1 % (42.0-52.0); Mean Corpuscular Hgb Conc 33.2 g/dL (32.0-36.0); Mean Corpuscular Volume 87.1 fL (80.0-100.0); Mean Platelet Volume 11.2 fL (9.4-12.4); Platelet Count 237 K/uL (130-400); RDW Coefficient of Variation 16.5 % (11.5-14.5); RDW Standard Deviation 52.9 fL (36.4-46.3); Red Blood Count 4.49 M/uL (4.70-6.10); White Blood Count 7.44 K/ul (4.8-10.8)
[2023-09-20 06:54] LABS: BUN Creatinine Ratio 20.4 (10-20); Calcium 9.7 mg/dl (8.6-10.3); Creatinine Clr Calc Pharmacy 69.7 ml/min; Est GFR (African American) 77.4 ml/min; Est GFR (Non-African American) 66.8 ml/min; Potassium 3.9 mmol/L (3.5-5.1)
[2023-09-20] MEDS ORDERED: APIXABAN 5 MG TABLET PO SCH (09:00)
[2023-09-20] MEDS: POTASSIUM CHLORIDE CRTAB 20 MEQ TABCR PO SCH (09:12)
--- NOTE | 2023-09-20 09:26 | Cardiology Consultation ---
Date of Consultation September 20, 2023 Assessment & Plan (1) Atrial fibrillation with rapid ventricular response: (2) Aortic root dilatation: (3) Cardiomyopathy: Plan 1. Atrial fibrillation: Unclear etiology. History of hypertension. Euthyroid. He has obesity and is 77 years old. These would be likely risk factors for atrial fibrillation. Not a great history for obstructive sleep apnea, but still possible. He converted to sinus rhythm around noon yesterday. This is of unclear duration. The patient was not symptomatic and does not check his heart rate or blood pressure regularly. He did visit his chiropractor the day prior to admission, but apparently no vital signs were obtained and there was no mention of a high heart rate at that time. He has lot of atrial ectopy which is likely the precipitant for episodes. It is possible that he developed atrial fibrillation immediately prior to admission and this was responsible for the acute worsening in his symptoms. He has been started on metoprolol and I think this would be a good drug for discharge. Will titrated to the highest dose tolerable prior to discharge. Will also be effective for his cardiomyopathy. He will certainly have recurrences will need to get a better understanding of both the frequency of episodes, associated symptoms and heart rates. He was given a dose of apixaban last night and he will be discharged on systemic anticoagulation. Holding anticoagulation today in anticipation of cardiac catheterization tomorrow. 2. Cardiomyopathy: Again, unclear etiology and duration. Certainly he has had some symptoms over 2 weeks. It is possible this was rate related, but we cannot say this definitively. He describes a sense of chronic chest discomfort but no worsening with exertion. Very sedentary overall. Certainly at risk for coronary disease and I think given his risk factors and the uncertainty surrounding the duration of atrial fibrillation would recommend coronary angiography. I did discuss the procedure with the patient today and he seems willing to proceed. His symptoms are much improved with 1 dose of Lasix yesterday. I think we can provide him with another dose today. He was started on metoprolol tartrate which can be converted to succinate at the time of discharge. Fairly well controlled, but I think we should try starting low-dose Entresto this evening. If he does not require revascularization I think we can also be more aggressive with an SG LT 2 inhibitor and possibly spironolactone. 3. Dilated aortic root: Seen on echocardiography but not commented on his CT scans. It may be worth having the radiologist's comment on whether there is true aortic root dilation or not. Adding beta-meseret. Will monitor blood pressure. If there is aortic root dilation I would avoid fluoroquinolones as well. Tentatively plan cardiac catheterization tomorrow I will increase the metoprolol tartrate to 25 mg twice Daily I will start Entresto this evening History of Present Illness Reason for Consultation: Abnormal echocardiogram, atrial fibrillation Requesting Physician: Darío Attending Physician: Vinny Turcios, History of Present Illness The patient is a 77-year-old gentleman without a known history of cardiac diseas e presented to the hospital with symptoms of worsening dyspnea. According the patient for approximately 2 weeks leading up to his admission at some element of exercise intolerance. This is characterized by both fatigue and dyspnea. He did report an element of chest discomfort that is fairly chronic in nature. He had some difficulty telling me if this was worse recently. Certainly no severe symptoms or acute worsening. On the morning of admission the patient had significantly worsening dyspnea to the point where he felt an evaluation was necessary. He did not report overt orthopnea. He was not aware of any lower extremity edema or increasing abdominal girth. He had been unaware of any increased heart rate or palpitation. In general he is a fairly sedentary individual. He does have some history of back discomfort and spine disease which limits his exertion. Typically, he does not have significant dyspnea with activity chronic chest pain but not exclusively exertional. This morning he is feeling much better. Not quite 100%, but certainly improved. He has been ambulatory around his room without dizziness or lightheadedness. Minimal dyspnea. Again, no palpitation. Allergies Allergy/AdvReac Type Severity Reaction Status Date / Time codeine Allergy Severe Rash Verified 08/25/23 09:54 oxycodone [From Percocet] Allergy Severe Rash Verified 08/25/23 09:54 Home Medications Medication Instructions Recorded Confirmed Type acetaminophen 500 mg tablet 500 mg PO DAILY PRN Pain 03/03/19 09/19/23 History (Tylenol Extra Strength) acyclovir 5 % topical ointment 1 appln topical ONCE PRN Rash 03/03/19 09/19/23 History (Zovirax) ascorbic acid (vitamin C) 1,000 mg 2.5 gm PO TID 03/03/19 09/19/23 History tablet biotin 10,000 mcg capsule 10,000 mcg PO PM 03/03/19 09/19/23 History glucosamine 750 bp-dgklxaabv-slm 1 tab PO TID 03/03/19 09/19/23 History no.7 644 mg-vit E-yjijyf-nnrbb tablet (Glucosamine-Chondr Cmplx (boswellia)) multivitamin (Daily Multi-Vitamin 1 tab PO QAM 03/03/19 09/19/23 History tablet) omega-3 acid ethyl esters 1 gram 1 cap PO TID 03/03/19 09/19/23 History capsule cetirizine 10 mg tablet (Zyrtec) 10 mg PO QAM 03/10/19 09/19/23 History cholecalciferol (vitamin D3) 25 25 mcg PO PM 02/19/22 09/19/23 History mcg (1,000 unit) tablet (Vitamin D3) valacyclovir 500 mg tablet 500 mg PO HS #90 tabs 10/22/22 09/19/23 Rx (Valtrex) simvastatin 10 mg tablet (Zocor) 10 mg PO HS #90 tabs 02/17/23 09/19/23 Rx cyclobenzaprine 5 mg tablet 5 mg PO DAILY muscle spasm #90 tabs 05/04/23 09/19/23 Rx gabapentin 300 mg capsule 300 mg PO HS #30 caps 08/25/23 09/19/23 Rx Patient History Medical History (Updated 09/20/23 @ 09:25 by Anibal Swann MD) Aortic root dilatation Mildly dilated aortic root and ascending aorta dilation per 2018 stress echo Osteoarthritis of knees, bilateral Basal cell carcinoma - upcoming MOHS procedure scheduled 05/20/23 ([facility]) - removing from left ear- per patient- Dr Thacker aware and okay with patient proceeding with Mohs procedure prior to TKAs Hearing loss No hearing aids HTN (hypertension) Dyslipidemia Lung nodules Under surveillance- most recent CT scan 12/2022- multiple tiny pulmonary nodules are unchanged- no additional follow up is required Lumbar spinal stenosis H/O prostate cancer s/p prostatectomy (diagnosed 2005)- no chemo or XRT Surgical History History of fusion of cervical spine History of tooth extraction Hx of umbilical hernia repair History of colonoscopy History of prostate surgery History of appendectomy Family History Father Colorectal cancer Prostate cancer Mother Pancreatitis Denies family history of Ovarian cancer Diabetes Myocardial infarction Breast cancer Lung cancer Stroke Social History (Updated 08/25/23 @ 10:01 by Lidia Suh LPN) Smoking Status: Former smoker Tobacco Type: Cigarettes Second Hand Exposure: No; Do You Dip or Chew Tobacco: No; Hx Alcohol Use: No Hx Substance Use: No Preferred Language: Macedonian Communication Ability: Effective Visual Impairment: No Limitations Hearing Ability: Hard of Hearing 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 His states that he snores, but less recently. He is not recall orthopnea. He does not sleep in a recliner. Physical Exam Physical Exam: The patient is alert and oriented. Mood and affect appeared normal. He answered all questions appropriately. HEENT: Pupils are equal and reactive to light and accommodation. Extraocular movements are intact. The sclerae are anicteric. Neuro: Cranial nerves intact Lungs: Some crackles in the right base. Otherwise good aeration. Normal respiratory effort. No expiratory wheezing. Cardiac: Heart demonstrates a regular rate and rhythm with frequent ectopy. Normal S1 and S2. No murmurs on examination. Pulses: The patient has palpable radial pulses bilaterally that are equal in intensity Extremities: There was no evidence of hypoperfusion. There is no cyanosis or clubbing. There is no edema. Skin: I did not appreciate any rashes on examination today. Results & Data Vital Signs (Past 12 Hours) Vital Signs Temp Pulse Pulse Resp BP BP Pulse Ox 09/20/23 07:21 74 09/20/23 07:17 36.9 C 83 18 146/84 H 95 09/20/23 02:41 36.6 C 94 H 16 110/75 92 09/19/23 23:00 36.6 C 90 18 110/76 96 09/19/23 22:54 78 O2 Del Method 09/20/23 07:21 09/20/23 07:17 Room Air 09/20/23 02:41 Room Air 09/19/23 23:00 Room Air 09/19/23 22:54 Laboratory Results Abnormal Lab Results 09/19/23 09/19/23 09/20/23 08:07 11:49 05:17 WBC 7.44 RBC 4.49 L Hgb 13.0 L Hct 39.1 L MCV 87.1 MCH 29.0 MCHC 33.2 RDW Std Deviation 52.9 H RDW Coeff of Alondra 16.5 H Plt Count 237 MPV 11.2 Sodium 141 Potassium 3.9 Chloride 110 H Carbon Dioxide 25 Anion Gap 6 BUN 22 Creatinine 1.08 Est Cr Clr Drug Dosing 69.7 Est GFR ( Amer) 77.4 Est GFR (Non-Af Amer) 66.8 BUN/Creatinine Ratio 20.4 H Glucose 100 H Calcium 9.7 Troponin I High Sens 30.7 H TSH 4.638 H Diagnostic Findings Chest x-ray obtained the time admission revealed cardiomegaly and pulmonary vascular congestion. Echocardiogram performed 09/19/2023: Severely reduced LV systolic function with ejection fraction 25-30%. Moderate mitral regurgitation. PG Care Time/CCT Total # of Minutes Spent Total Time Spent with Patient: Total time spent is greater than 50% in coordination of care (as documented) at patient's floor/unit and/or counseling patient: Coding Level of Care Code 94554 INT INP/OBS CARE 3/75MIN Diagnoses Atrial fibrillation with rapid ventricular response I48.91 Aortic root dilatation I77.810 Cardiomyopathy I42.9
--- NOTE | 2023-09-20 10:00 | Hospitalist Progress Note ---
Date of Service September 20, 2023 Assessment & Plan (1) Shortness of breath: (2) Atrial fibrillation with rapid ventricular response: (3) HTN (hypertension): (4) Dyslipidemia: Plan This is a 77-year-old male who was admitted to our service due to new diagnosis of atrial fibrillation with RVR, which presented with symptoms of shortness of breath that are worse with exertion, chest tightness, and bilateral lower extremity weakness. Atrial Fibrillation (New diagnosis) -EKG done in ED showing A-fib with RVR -Patient symptomatic (shortness of breath/dyspnea on exertion, chest tightness) at the time of arrival. Symptoms improved today but still having some SOB worse with exertion. -Patient already converted. -TSH of 4.628. Not likely that thyroid disease is the cause for patient's a-fib. -TTE (09/19/23): moderate-severe reduction in LV systolic function (EF 25-30%), moderate-severe global hypokinesis of LV Likely that cardiomyopathy is a result of prolonged arrhythmia -Discussed likely need for outpatient follow up with cardiology after discharge, as well as need for sleep study to evaluate for possible sleep apnea as this is another possible cause for a-fib. - Cardiology consulted: A-fib: Increase Metoprolol tartrate to 25mg bid. Continue Metoprolol succinate after discharge. Start low-dose Entresto. Continue Eliquis after discharge as well. Cardiomyopathy: Possible this is due to prolonged elevated rates but not certain. Cardiac catheterization tomorrow. Dilated aortic root: Not commented on CT. Ask for clarification from radiologist to see if true dilation or not. Monitor BP. Elevated troponin -Initial troponin ordered in ED elevated at 33.9 which decreased to 31.7 two hours later. Downtrend continued during the day (next value was 30.7). -Patient never had chest pain, nausea, vomiting, or any other ischemic symptoms -Likely that this elevation is related to elevated rates HTN -Being followed for this as an outpatient with PCP, and as his blood pressure has been within goal range his medication was discontinued -Continue to monitor blood pressure while on beta-meseret HLD -Continue simvastatin 10 mg Dispo: PCU/telemetry Diet: Regular VTE ppx: Eliquis (held today for catheterization tomorrow) Code Status: Full code Admission and Anticipated Discharge Date Admission Date: September 19, 2023 Supervising Physician Co-Signing Physician Notes I personally examined the patient and verified all bettencourt points of history and exam, discussed case, and agree with decision making with Dr Chanel Feels okay overall. No new complaints. Discussed with cardiology. Plan for cath tomorrow vitals noted nad heent nc at mmm breathing unlabored no accessory muscle use. Heart rates have remained controlled new afib - rate controlled (actually converted) - Continue to titrate metoprolol. Eliquis long-term (currently on hold for cath tomorrow) (w/u - TSH sl elevated recheck ~4-6wks but thyroid disease not culprit, echo more likely "effect than cause", outpt sleep study) dilated cardiomyopathy - with global hypokinesis, nominally elevated troponin, normal stress echo ~6yrs ago - mostly suspect he was in RVR far longer than he realized and this is a rate related cardiomyopathy - but agree with cardiologycath certainly makes sensefortunately able to do tomorrow. mild pulmonary edema - mild acute (?acute on chronic) HFrEF - rate control, lasix given, overall improved DVT proph - anticoagulated for afib otherwise as above Subjective Mr. Rubio is a 77 y/o male with PMHx remarkable for stable HTN (not on medication), HLD, mild aortic root dilation, lung nodules, bilateral knee OA, and pbesity who was admitted due to new diagnosis of A-fib that presented as SOB/KEYES and intermittent chest tightness. Today he was evaluated and was found to be AAOx3, afebrile, and in NAD. He refers still feeling some SOB when walking to the bathroom and back, but feels as though it has improved somewhat compared to these last few days. Denies chest pain, palpitations, tachycardia, lightheadedness, syncope, weakness, fevers, chills, or any other symptom. Review of Systems Review of Systems: As per HPI Physical Exam Physical Exam: GENERAL: Awake alert and oriented in all spheres, afebrile, no acute distress HEAD: Atraumatic and normocephalic EYES: EOM intact,MYRANDA THROAT: Normal to visual inspection CHEST: No visible lesions, symmetric chest expansions with respirations CARDIO: RRR, no r/m/g PULMONARY: Clear to auscultation bilaterally, no wheezing or crackles heard EXTREMITIES: No swelling in bilateral lower extremities, no calf tenderness Results & Data Results & Data Vital Signs (Past 12 Hours) Vital Signs Temp Pulse Pulse Resp BP BP Pulse Ox 09/20/23 08:00 09/20/23 07:21 74 09/20/23 07:17 36.9 C 83 18 146/84 H 95 09/20/23 02:41 36.6 C 94 H 16 110/75 92 09/19/23 23:00 36.6 C 90 18 110/76 96 09/19/23 22:54 78 O2 Del Method 09/20/23 08:00 Room Air 09/20/23 07:21 09/20/23 07:17 Room Air 09/20/23 02:41 Room Air 09/19/23 23:00 Room Air 09/19/23 22:54 Resident Activity Tracking Resident Involvement: Resident Care Provided Care Provided: Adult Hospital Medicine
[2023-09-20] MEDS: FUROSEMIDE INJ 20 MG/2 ML VIAL IV ONE (10:25)
--- NOTE | 2023-09-20 12:17 | Billing Data ---
Date of Service September 20, 2023 Coding Level of Care Code 83667 SUB INP/OBS CARE MIN
[2023-09-20] MEDS: VALSARTAN/SACUBITRIL 26/24MG TAB PO SCH (20:10)
[2023-09-20] MEDS: METOPROLOL TARTRATE 25 MG TAB PO SCH (20:10)
--- NOTE | 2023-09-21 09:44 | Pre Anesthesia Assessment ---
Date of Service September 21, 2023 Pre Sedation Assessment Vital Signs Temp Pulse Pulse Resp BP BP Pulse Ox 09/21/23 09:31 36.7 C 80 16 110/71 96 09/21/23 09:20 09/21/23 07:14 37.0 C 66 18 107/68 96 09/21/23 02:51 36.5 C 70 18 108/85 94 09/20/23 23:01 65 09/20/23 22:58 36.8 C 74 17 106/72 92 09/20/23 21:27 09/20/23 19:00 36.4 C L 96 H 18 130/86 95 09/20/23 16:34 77 09/20/23 16:00 36.8 C 82 18 112/71 93 09/20/23 11:44 36.7 C 80 18 116/76 94 O2 Del Method 09/21/23 09:31 Room Air 09/21/23 09:20 Room Air 09/21/23 07:14 Room Air 09/21/23 02:51 Room Air 09/20/23 23:01 09/20/23 22:58 Room Air 09/20/23 21:27 Room Air 09/20/23 19:00 Room Air 09/20/23 16:34 09/20/23 16:00 Room Air 09/20/23 11:44 Room Air Cardiovascular + regular rate and + regular rhythm Respiratory + respiratory effort normal Pre-Sedation Airway Assessment Smoking Status: Former smoker Hx Sleep Apnea: No Hx Difficult Intubation: No Short, Thick Neck: No Thyromental Distance: > or= 3.5 Finger Breadths Oral Cavity: + WNL Mallampati Class: III ASA: ASA3 Procedure Planning Contraindications for Sedation: none Current Medications Reviewed: Yes Notes The planned sedation has been discussed with the patient. Informed Consent was obtained. I have identified the patient, determined the appropriateness of sedation and have assessed the patient immediately prior to the procedure. All medicine(s) and interventions are by my order.
[2023-09-21] MEDS: fentaNYL citrate PF 100 MCG/2 ML VIAL ONE (10:36)
[2023-09-21] MEDS: MIDAZOLAM HCL 1 MG/ML 2ML VIAL ONE (10:37)
[2023-09-21] MEDS: OPTIRAY 350 ONE (10:37)
[2023-09-21] MEDS: niCARdipine HCL INJ 2.5 MG/ML 10 ML AMP ONE (10:37)
[2023-09-21] MEDS: HEPARIN (PORCINE) 1000 UNIT/ML 10 ML (CATH LAB USE ONLY) ONE (10:37)
[2023-09-21] MEDS: NITROGLYCERIN/D5W 100MCG/ML 20ML SYR ONE (10:38)
--- NOTE | 2023-09-21 10:40 | Post Anesthesia Assessment ---
Date of Service September 21, 2023 Post Sedation Assessment Vital Signs Temp Pulse Pulse Resp BP BP Pulse Ox 09/21/23 09:31 36.7 C 80 16 110/71 96 09/21/23 09:20 09/21/23 07:14 37.0 C 66 18 107/68 96 09/21/23 02:51 36.5 C 70 18 108/85 94 09/20/23 23:01 65 09/20/23 22:58 36.8 C 74 17 106/72 92 09/20/23 21:27 09/20/23 19:00 36.4 C L 96 H 18 130/86 95 09/20/23 16:34 77 09/20/23 16:00 36.8 C 82 18 112/71 93 09/20/23 11:44 36.7 C 80 18 116/76 94 O2 Del Method 09/21/23 09:31 Room Air 09/21/23 09:20 Room Air 09/21/23 07:14 Room Air 09/21/23 02:51 Room Air 09/20/23 23:01 09/20/23 22:58 Room Air 09/20/23 21:27 Room Air 09/20/23 19:00 Room Air 09/20/23 16:34 09/20/23 16:00 Room Air 09/20/23 11:44 Room Air Recovery Score Activity: Moves 4 extremities Respiration: Deep Breath/Cough Circulation: +/-20% PreAnes Value Consciousness: Fully Awake Oxygen Saturation: > 92% On Room Air Discharge Sedation Level of Care: Fast Track Phase II Post Sedation Plan On clinical assessment, the patient appears to have tolerated the sedation without complications. Patient is recovering as anticipated. Patient will continue to be monitored by nursing and may be discharged when sedation discharge criteria are met per below protocol. Upon Completions of procedure up to 15 minutes continue every 5 minute vital signs and the P.A.R. score; then discharge to a Phase I or Fast Track to Phase II per the following guidelines: * Discharge Patient to appropriate Phase II area if PAR is 8 or greater or return to pre- procedure baseline. The post - procedure orders will be as directed. * If PAR score is less than 8 or not return to pre-procedure baseline then patient will follow Phase I monitoring till PAR is reached for Phase II. The Phase I may be done in procedure room or may call to secure a Phase I area. * If naloxone or flumazenil are used for reversal, hold in Phase I for continued monitoring from when last reversal dose was given for a minimum of 60 minutes or longer pending the nurse and/or physician discretion of patient condition before discharge to Phase II. Please call the Sedation Physician to re-evaluate and complete post-note for discharge to Phase II area. Do NOT discharge from procedure sedation or Phase 1 until post- sedation evaluation note is complete by procedure /sedation MD Sedation Discharge Instructions to be given to the patient at discharge to home.
--- NOTE | 2023-09-21 10:41 | Cardiac Catheterization ---
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 Cardiac Status Clinical evaluation leading to the procedure CAD Presenation: Non STEMI Diagnostic Physicians Name: Anibal Swann MD Closure Device Recommendations: Medical Therapy and/or Counseling Cardiac Cath Procedure Full Procedure Date September 21, 2023 Pre-Procedure Diagnosis Pre-Procedure Diagnosis: Cardiomyopathy AUC Score AUC Score: 7 Post-Procedure Diagnosis Post-Procedure Diagnosis: Normal Coronary Arteries Procedure(s) Performed Procedure(s) Performed: Coronary Angiography and Left Heart Cath Remnant Sorter Anibal Swann MD Bicycle Designer(s) none Estimated Blood Loss Estimated Blood Loss: 10cc Medication(s) Medication(s): Fentanyl, Heparin, Lidocaine 1%, Nicardipine, Nitroglycerin and Versed Summary of Findings Procedure performed: Cardiac catheterization Staff communication manager: Anibal Swann MD Indication: Procedure in detail: The patient was informed of the risks benefits and alternatives to the intended procedure, he understood such and wished to proceed. He was taken to the cardiac catheterization suite in a fasting state. Conscious sedation was administered per protocol and the patient was monitored electrocardiographically throughout today's procedure. The right wrist area was prepped and draped in usual sterile fashion. This area was anesthetized using subcutaneous administration of a lidocaine solution. The right radial artery was then accessed using Seldinger technique, and a arterial sheath was placed at this site over a guidewire. The sheath was used to facilitate passage of the cardiac catheter for coronary angiography and left heart catheterization. Coronary angiogram was then obtained in multiple orthogonal views prior to removal of the catheter. At the conclusion of the procedure the sheath was removed and hemostasis was achieved at the access site using manual pressure. The patient tolerated procedure well, there were no immediate complications. Equipment used: 5 Sinhala tiger 4 Findings: Coronary angiography Left main: Left main was normal in size and caliber and fairly patulous at its distal portion the bifurcated into the left anterior descending left circumflex arteries. No obstructive disease in this vessel. Left anterior descending: Left anterior descending was a large transapical vessel. It produced a large 1st diagonal system in several diminutive diagonals. No obstructive disease in this vessel Left circumflex: Left circumflex was nondominant vessel. The produced 3 medium-sized obtuse marginal branches. No disease this vessel Right coronary artery: Right coronary was dominant artery. No disease this vessel Impression: Right dominant coronary system Coronaries without obstructive coronary disease Normal left ventricular filling pressure No evidence of aortic stenosis Hemodynamics Rest Ao:: 75/56 mm of mercury Final Ao: 86/60 mm of mercury LV: 77/4 mm of mercury Left ventricular end-diastolic pressure 9 mm Recommendations Recommendations: Medical Therapy and/or Counseling Radiation Exposure (mGy) 1247 Contrast (mls) 55 Procedural Complication(s) None Disposition PCU I attest to the content of the Intraoperative Record and any orders documented therein. Any exceptions are noted below. [facility] Card Cath Procedure Codes Cardiac Catheterization Procedure 1: Cardiovascular Cath Procedures: 66859 Coronaries and LHC (+/-LV) Moderate Sedation Procedure 1: Sedation/Anesthesia: 18440 Mod Sedation by the same physician;Init15 Min Child Age 5 & Up Procedure 2: Sedation/Anesthesia: 79147 Mod Sedation by the same physician; Ea [id number] Minutes PG Care Time/CCT Total # of Minutes Spent Total Time Spent with Patient: Total time spent is greater than 50% in coordination of care (as documented) at patient's floor/unit and/or counseling patient:
--- NOTE | 2023-09-21 10:48 | Hospitalist Progress Note ---
Date of Service September 21, 2023 Assessment & Plan (1) Shortness of breath: (2) Atrial fibrillation with rapid ventricular response: (3) HTN (hypertension): (4) Dyslipidemia: Plan This is a 77-year-old male who was admitted to our service due to new diagnosis of atrial fibrillation with RVR, which presented with symptoms of shortness of breath that are worse with exertion, chest tightness, and bilateral lower extremity weakness. Atrial Fibrillation (New diagnosis) -EKG done in ED showing A-fib with RVR -Patient asymptomatic today save for some SOB worse with ambulation. -Patient already converted. -TSH of 4.628. -TTE (09/19/23): moderate-severe reduction in LV systolic function (EF 25-30%), moderate-severe global hypokinesis of LV Likely that cardiomyopathy is a result of prolonged arrhythmia, but cannot r/o other etiologies. - Cardiology consulted: A-fib: Increased Metoprolol tartrate to 25mg bid. Continue Metoprolol succinate after discharge. Started low-dose Entresto. Continue Eliquis after discharge as well but held for cath today. Cardiomyopathy: Possible this is due to prolonged elevated rates but not certain. Cardiac catheterization today. Elevated troponin -Initial troponin ordered in ED elevated at 33.9 which decreased to 31.7 two hours later. Downtrend continued during the day (next value was 30.7). -Patient never had chest pain, nausea, vomiting, or any other ischemic symptoms -Likely that this elevation is related to elevated rates HTN -Continue to monitor blood pressure while on beta-meseret HLD -Continue simvastatin 10 mg Dispo: PCU/telemetry Diet: Regular VTE ppx: Eliquis (held today for catheterization tomorrow) Code Status: Full code Admission and Anticipated Discharge Date Admission Date: September 19, 2023 Subjective Mr. Rubio is a 77 y/o male with PMHx remarkable for stable HTN (not on medication), HLD, mild aortic root dilation, lung nodules, bilateral knee OA, and pbesity who was admitted due to new diagnosis of A-fib that presented as SOB/KEYES and intermittent chest tightness. Today he was evaluated and was found to be AAOx3, afebrile, and in NAD. He refers still feeling some persistent but improved SOB when walking to the b athroom and back. Denies chest pain, palpitations, tachycardia, lightheadedness, syncope, weakness, fevers, chills, or any other symptom. Review of Systems Review of Systems: As per HPI Physical Exam Physical Exam: GENERAL: Awake alert and oriented in all spheres, afebrile, no acute distress HEAD: Atraumatic and normocephalic EYES: EOM intact,MYRANDA THROAT: Normal to visual inspection CHEST: No visible lesions, symmetric chest expansions with respirations CARDIO: RRR, no r/m/g PULMONARY: Clear to auscultation bilaterally, no wheezing or crackles heard EXTREMITIES: No swelling in bilateral lower extremities, no calf tenderness Results & Data Results & Data Vital Signs (Past 12 Hours) Vital Signs Temp Pulse Pulse Resp BP BP Pulse Ox 09/21/23 09:31 36.7 C 80 16 110/71 96 09/21/23 09:20 09/21/23 07:14 37.0 C 66 18 107/68 96 09/21/23 02:51 36.5 C 70 18 108/85 94 09/20/23 23:01 65 09/20/23 22:58 36.8 C 74 17 106/72 92 O2 Del Method 09/21/23 09:31 Room Air 09/21/23 09:20 Room Air 09/21/23 07:14 Room Air 09/21/23 02:51 Room Air 09/20/23 23:01 09/20/23 22:58 Room Air Resident Activity Tracking Resident Involvement: Resident Care Provided Care Provided: Adult Hospital Medicine
--- NOTE | 2023-09-21 11:00 | Cardiology Progress Note ---
Date of Service September 21, 2023 Assessment & Plan (1) Atrial fibrillation with rapid ventricular response: (2) Aortic root dilatation: (3) Cardiomyopathy: Plan 1. Atrial fibrillation: No recurrence of atrial fibrillation. Some occasional ventricular ectopy. I think we can switch his metoprolol tartrate to metoprolol succinate 50 mg daily. He can start systemic anticoagulation Eliquis 5 mg twice daily tomorrow morning. 2. Cardiomyopathy: Nonischemic. Unclear etiology. There is a chance that this was rate related although not definite. I think at this point will continue him on metoprolol succinate and Entresto. We can see him in the outpatient setting to adjust medications if necessary. He would likely still benefit from the addition of an aldosterone antagonist and SG LT 2 inhibitor. Will watch his renal function and blood pressures prior to initiation. 3. Dilated aortic root: This can be monitored over time Once he has achieved adequate hemostasis at the radial access site think he would be a good candidate for discharge on the medical therapy noted above. Were normal at the time of his catheterization suggesting that he is euvolemic. I do not believe he needs a daily diuretic although he will need to monitor himself for recurrent worsening breathing and daily weights would also be helpful in this regard. Admission and Anticipated Discharge Date Admission Date: September 19, 2023 Subjective This morning patient claimed to have some element of dyspnea with activity. Improved from admission but not back to 100% normal. No dizziness lightheadedness. No chest pain. No sense of palpitation. Review of Systems Review of Systems: Per HPI Physical Exam Physical Exam: The patient is alert and oriented. Mood and affect appeared normal. He answered all questions appropriately. HEENT: Pupils are equal and reactive to light and accommodation. Extraocular movements are intact. The sclerae are anicteric. Neuro: Cranial nerves intact Lungs: Normal respiratory effort. Cardiac: Heart demonstrates a regular rate and rhythm with frequent ectopy. Normal S1 and S2. No murmurs on examination. Pulses: The patient has palpable radial pulses bilaterally that are equal in intensity Extremities: There was no evidence of hypoperfusion. There is no cyanosis or clubbing. There is no edema. Skin: I did not appreciate any rashes on examination today. Results & Data Vital Signs (Past 12 Hours) Vital Signs Temp Pulse Pulse Resp BP BP Pulse Ox 09/21/23 09:31 36.7 C 80 16 110/71 96 09/21/23 09:20 09/21/23 07:14 37.0 C 66 18 107/68 96 09/21/23 02:51 36.5 C 70 18 108/85 94 09/20/23 23:01 65 09/20/23 22:58 36.8 C 74 17 106/72 92 O2 Del Method 09/21/23 09:31 Room Air 09/21/23 09:20 Room Air 09/21/23 07:14 Room Air 09/21/23 02:51 Room Air 09/20/23 23:01 09/20/23 22:58 Room Air Diagnostic Findings Cardiac catheterization performed today did not reveal any evidence of o bstructive coronary disease. Normal left ventricular filling pressures. PG Care Time/CCT Total # of Minutes Spent Total Time Spent with Patient: Total time spent is greater than 50% in coordination of care (as documented) at patient's floor/unit and/or counseling patient: Coding Level of Care Code 44058 SUB INP/OBS CARE 2/35MIN Diagnoses Atrial fibrillation with rapid ventricular response I48.91 Aortic root dilatation I77.810 Cardiomyopathy I42.9
--- NOTE | 2023-09-21 14:28 | Discharge Summary ---
Date of Service September 21, 2023 Admission HPI Per Admitting Provider Mr. Del Rosario is a 77-year-old male with past medical history relevant for hypertension that is well-controlled (no medications for this), hyperlipidemia, mild aortic root dilation as diagnosed by an echocardiogram from 2018, lung nodules noted on chest CT, bilateral knee osteoarthritis (status post bilateral knee replacement in 2022) and obesity who presented to the emergency room due to 2 to 3 days of shortness of breath that is worse with exertion, bilateral lower extremity weakness, and intermittent chest tightness. Patient denies having experienced any chest pain, palpitations, tachycardia, near syncopal episodes, syncopal episodes, vision changes, cough, fevers, chills, or any other systemic symptoms. He states that he has not felt shortness of breath or his other current symptoms and a prior occasion, has no history of heart disease/CAD/PR, and does not follow with a anesthesia attending. Prior to current episode, patient is independent in his activities of daily living and is currently employed. Tiara mcgovern is a former smoker, denies alcohol use and denies substance use. 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 which showed a heart rate of 140 bpm with irregular rhythm consistent with atrial fibrillation, EKG showing A-fib with RVR showing a rate of 147, diltiazem bolus given and patient placed on diltiazem drip Labs/imaging: troponins mildly elevated at 33.9 and repeat 2 hours later showing level of 31.7, labs without leukocytosis or any other mahesh abnormalities, renal markers within reference range, normal electrolytes save for mildly elevated chloride, chest x-ray without evidence of an acute process, Admission Exam Per Admitting Provider GENERAL: Awake alert and oriented in all spheres, afebrile, no acute distress HEAD: Atraumatic and normocephalic EYES: EOM intact,MYRANDA THROAT: Normal to visual inspection CHEST: No visible lesions, symmetric chest expansions with respirations CARDIO: Slightly tachycardic with irregular rhythm PULMONARY: Clear to auscultation bilaterally, no wheezing or crackles heard GI: Soft, nondistended, nontender EXTREMITIES: No swelling in bilateral lower extremities, no calf tenderness Principal Diagnosis Atrial Fibrillation Discharge Exam GENERAL: Awake alert and oriented in all spheres, afebrile, no acute distress HEAD: Atraumatic and normocephalic EYES: EOM intact,MYRANDA THROAT: Normal to visual inspection CHEST: No visible lesions, symmetric chest expansions with respirations CARDIO: RRR, no r/m/g PULMONARY: Clear to auscultation bilaterally, no wheezing or crackles heard EXTREMITIES: No swelling in bilateral lower extremities, no calf tenderness Discharge Data Allergies Allergy/AdvReac Type Severity Reaction Status Date / Time codeine Allergy Severe Rash Verified 08/25/23 09:54 oxycodone [From Percocet] Allergy Severe Rash Verified 08/25/23 09:54 Consultations 09/19/23 07:41 ED Decision to Admit Stat 09/19/23 16:23 Consult Cardiology Routine Procedures Performed Operation Date: 09/21/23 09:30 Actual Procedures p Cath, Left with Cors and Vent - Anibal Swann MD s Cineradiography w/Routine Exam - Anibal Swann MD Ordered Studies 09/21/23 09:37 CL Cath Imgs for PACS use only Routine Hospital Course (1) Shortness of breath: (2) Atrial fibrillation with rapid ventricular response: (3) HTN (hypertension): (4) Dyslipidemia: Plan This is a 77-year-old male who was admitted to our service due to new diagnosis of atrial fibrillation with RVR, which presented with symptoms of shortness of breath that are worse with exertion, chest tightness, and bilateral lower extremity weakness. Atrial Fibrillation (New diagnosis, stable) -EKG done in ED showing A-fib with RVR -Converted to NSR -TSH of 4.628, but do not believe his a-fib came as a consequence of thyroid disease -TTE (09/19/23): moderate-severe reduction in LV systolic function (EF 25-30%), moderate-severe global hypokinesis of LV Likely that cardiomyopathy is a result of prolonged arrhythmia. Euvolemic on exam today. - Cardiology consulted and catheterization performed, which was normal (no ischemic changes) - Discharge with Metoprolol succinate 50mg daily, Entresto, and Eliquis 5mg bid for anticoagulation, as per cardiology recc - Advise f/u with PCP and anesthesia attending after discharge for evaluation and possible f/u TTE to reassess cardiac function after return to normal HR. - Consider outpatient sleep study to r/o sleep apnea as a cause for new diagnosis of a-fib. Elevated troponin (Resolved) -Initial troponin ordered in ED elevated at 33.9 which decreased to 31.7 two hours later. Downtrend continued during the day (next value was 30.7). -Likely that this elevation is related to elevated rates HTN (Chronic, stable) -Continue Metoprolol after discharge HLD (Chronic, stable) -Continue simvastatin 10 mg Patient found stable and fit to be discharged today. Total Time Total Time Spent Total Time Spent (In Minutes): As per attending attestation. Discharge Plan Discharge Items Patient Disposition: Home - Self-Care Reason For Visit: AFIB RVR Discharge Diagnosis: new-onset Atrial fibrillation Activity: Per Instructions section Activity Comment: No vigorous activity involving the left hand or wrist for 7 days. Lifting: No more than 5 pounds Lifting Comment: No lifting greater than 5 lb with the left hand. Non-emergency contact: Primary Care Provider and Chief Crna Call non-emergency contact if: your symptoms worsen and your temperature is above 101 Follow-up/Referrals: Sohan Woo DO [Primary Care Provider] - 09/29/23 11:30 am Diet: Heart Healthy Addtl Attending Provider Instructions: You were admitted to the hospital due to shortness of breath that was found to be related to an abnormal heart rhythm called atrial fibrillation. We gave you medications to correct this abnormal heart rhythm with success, and your heart rhythm is currently normal. We also performed some tests to see if there is another health condition that could have caused your atrial fibrillation (e.g. thyroid testing, ultrasound of your heart). Your thyroid testing was normal, but your heart ultrasound (echocardiogram) showed your heart was not pumping as well. As we discussed, your heart pumps blood through your body with strong contractions of heart muscle, and like your leg muscles after a marathon, your heart muscle can get tired if overworked such as can happen when you have a rapid heart rate for a long time as you were experiencing. We spoke with our cardiologists so they could evaluate you and do a heart catheterization to ensure this change in your heat's function is not due to something else and fortunately that was normal. Therefore, your "tired heart muscle" is likely due to your prolonged a-fib, and should normalize with time now that your heart rate is normal. We will be discharging you today with new medications to keep your heart rate under control (Metoprolol succinate 50mg daily) and prevent the formation of blood clot formation (Eliquis 5mg two times a day). We will also be discharging you with the Entresto you had been taking in the hospital as per the anesthesia attending's recommendations. A discharge summary will be sent to your primary care physician to ensure continuity of care. Please bring this discharge summary with you to your next office appointment so that your provider can review it at that time. Follow-up appointments: Make a follow-up appointment with your PCP within the next week. It is very important that you follow up with them shortly after discharge from the hospital. Make a follow-up appointment with your anesthesia attending in 1-2 weeks. Keep all your follow-up appointments as already scheduled. If you cannot make an appointment, notify your provider. Medications: Your medication list has been reviewed and reconciled upon discharge to ensure accuracy and continuity of care. An updated list of all your medications is included with your hospital discharge paperwork. Please review this list closely, and make note of any changes. If you have any issues filling these prescriptions, please call [phone] and ask to leave a message for Dr. Chanel. Take your medications as instructed; do not skip a dose of your medicines. Make sure all of your doctors know every medicine you are taking (including ahdn-qtu-wdhdjcz medicines, vitamins, and supplements). Call your primary care provider before taking any new medicines (including over- the-counter medicines, vitamins, and supplements), because some of these may interact with your current medications, or may make your symptoms worse. Tell your primary care provider if you cannot afford your medications. CONTACT YOUR PRIMARY CARE PROVIDER if you experience any of the following: Worsening of symptoms Fever, chills, or fatigue Difficulty following your treatment plan, or difficulty taking medications CALL 911 OR GO TO THE EMERGENCY DEPARTMENT if you experience any of the following: Sudden, severe abdominal pain or nausea/vomiting Severe chest pain, or chest pain that radiates (moves) to your jaw or arm Sudden, severe shortness of breath or difficulty breathing Thank you for allowing us to participate in your care. Pending Studies at Discharge: No Stand-Alone Forms: [employer], Smoking Cessation Medications and DC Order Prescriptions: New Entresto 24-26 mg tablet 1 tab PO BID 30 Days Qty: 60 0RF Eliquis 5 mg tablet 5 mg PO BID 30 Days Qty: 60 0RF metoprolol succinate 50 mg tablet extended release 24 hr 50 mg PO DAILY 30 Days Qty: 30 0RF Continued valacyclovir [Valtrex] 500 mg tablet 500 mg PO HS Qty: 90 3RF Rx Instructions: TAKE 1 TABLET BY MOUTH DAILY simvastatin [Zocor] 10 mg tablet 10 mg PO HS Qty: 90 3RF cyclobenzaprine 5 mg tablet 5 mg PO DAILY Qty: 90 1RF Rx Instructions: TAKE ONE TABLET BY MOUTH ONCE DAILY. acyclovir [Zovirax] 5 % ointment 1 appln topical ONCE PRN (Reason: Rash) biotin 10,000 mcg capsule 10,000 mcg PO PM Glucosamine-Chondr (boswellia) 515-626-08-1-3 mg tablet 1 tab PO TID multivitamin [Daily Multi-Vitamin] tablet 1 tab PO QAM omega-3 acid ethyl esters 1 gram capsule 1 cap PO TID acetaminophen [Tylenol Extra Strength] 500 mg tablet 500 mg PO DAILY PRN (Reason: Pain) ascorbic acid (vitamin C) 1,000 mg tablet 2.5 gm PO TID cetirizine [Zyrtec] 10 mg tablet 10 mg PO QAM gabapentin 300 mg capsule 300 mg PO HS Qty: 30 0RF cholecalciferol (vitamin D3) [Vitamin D3] 25 mcg (1,000 unit) Tablet 25 mcg PO PM Discharge Orders: Discharge Order (Routine); Ordered 09/21/23 Ordered By: Emily Chanel Admission Data Admit Date/Time: 09/19/23 07:40 Attending Provider: Anibal Henson Admit Provider: Vinny Turcios Primary Care Provider: Sohan Woo Other Providers: Vinny Turcios; Jase Tejeda Other Interventions: Discharge Summary Assessment (RN) Last Done: 09/21/23 14:49 Supervising Physician Co-Signing Physician Notes Attending attestation Pt seen and examined in concert with Dr. Chanel. In agreement with the documented findings as noted in the resident documentation with any exceptions or additions as noted here. Resting comfortably in bed with resolution of fatigue and dyspnea on exertion. On examination, S1/S2 nl RRR no MCG. CTAB. Abd NT/ND BS+ve Atrial fibrillation s/p RVR - continue Entresto, apixaban, metoprolol and follow up with cardiology and primary care. Precautions re: anticoagulation and recurrent symptoms reviewed in detail. Else see resident documentation as noted. Total attending physician time spent with this patient's care on the day of discharge: 40 minutes. Resident Activity Tracking Resident Involvement: Resident Care Provided Care Provided: Adult Hospital Medicine
== END 2023-09-21 15:53 | disposition home or self-care (01) | DRG 286 ==
LOC: SUATTDRO → ED 06:17 → EDINP 07:40 → SUATTDRO 07:40 → EDINP 09:21 → 2S 10:29